=== PATIENT | female | born 1950 | race Caucasian/White ===

== ENCOUNTER 2018-11-17 13:43 | Inpatient (IN) | payer OTHER ==
[2018-11-17] MEDS ORDERED: ONDANSETRON 4 MG/2 ML VIAL ONE (14:59)
[2018-11-17 15:18] LABS: Absolute Lymphocytes (CBC) 2.2 K/uL (0.7-4.9); Absolute Monocytes 1.2 K/uL (0.1-1.3); Absolute Neutrophil 6.4 K/uL (1.8-8.0); Basophils % 0.6 % (0-1.3); Eosinophils % 1.9 % (0-4.4); Hematocrit 42.6 % (36.0-45.0); MPV 8.2 fL (7.6-11.3); Monocytes % 12.1 % (3.3-12.3); RBC Red Blood Cell Count 4.34 M/uL (3.86-4.86)
[2018-11-17 15:23] LABS: Urine Blood NEGATIVE (NEG); Urine Glucose NEGATIVE (NEG); Urine Protein NEGATIVE (NEG); Urine pH 5.5 (5.0-7.0)
[2018-11-17 15:48] LABS: Bilirubin Direct 0.2 mg/dL (0-0.2); Bilirubin Total 0.8 mg/dL (0.2-1.0); Potassium 3.7 mmol/L (3.5-5.1); Protein, Total 7.9 g/dL (6.4-8.2)
--- NOTE | 2018-11-17 17:13 | RAD REPORT ---
EXAM DESCRIPTION: CT - Abdomen Pelvis W Contrast - 11/17/2018 4:51 pm CLINICAL HISTORY: Lower abdominal pain, nausea, vaginal spotting COMPARISON: July 2012 TECHNIQUE: Biphasic, helical CT imaging of the abdomen and pelvis was performed following 100 ml non -ionic IV contrast. Oral contrast was given. All CT scans are performed using dose optimization technique as appropriate and may include automated exposure control or mA/KV adjustment according to patient size. FINDINGS: No suspicious findings in the lung bases. Liver shows diffuse fatty infiltration pattern. No focal liver lesion. Spleen and pancreas show no carrillo spicious findings. Cholecystectomy clips are present. No biliary tree dilatation. Moderate hydronephrosis of the pelvis and calices noted on the right. There is a 15 x 8 millimeter no nobstructing pelvic calcification. A 7 millimeter calcification is present in the proximal ureter. On a KUB projection this is the L3-4 disc level. Renal function is delayed on the right. No pyelonephri tis or acute parenchymal process. No bladder abnormalities. No adrenal abnormalities. Bilateral parap elvic cysts are present along with a 4 centimeter lower pole right renal cyst. No dilated bowel loops or bowel wall thickening. No free air, pneumatosis or free fluid. No other ar ea of stranding. Uterus and ovaries show no suspicious findings. A 2 centimeter right ovarian or para ovarian cyst is present. No hernia, mass or bulky lymphadenopathy. Disc and bony degenerative changes are present. Lower lumbar facet degenerative changes are advanced. L4-5 central spinal stenosis present. IMPRESSION: Obstructing 7 millimeter proximal right ureter calcification causing moderate pelvis and calyx dilatation on the right. Nonobstructing 15 x 8 mm calcification in the dilated right renal pelvis. Right renal function is del ayed. Diffuse fatty infiltration of the liver. Uterus and ovaries show no suspicious findings to explain vaginal spotting. A 2 centimeter right ovar ramon or paraovarian cyst is present.
[2018-11-17] MEDS ORDERED: KETOROLAC 30 MG/ML INJ ONE (17:39)
[2018-11-17] MEDS ORDERED: CEFTRIAXONE/SWI 1gm 1 GM/10 ML SYR ONE (17:39)
--- NOTE | 2018-11-17 17:40 | EDPHYS ---
Physician Documentation [facility] Name: Natasha Kim Age: 67 yrs Sex: Female : 1950 Arrival Date: 11/17/2018 Time: 13:48 Bed 15 Private MD: ED Physician Moses Carias HPI: 11/17 14:51 This 67 yrs old Female presents to ER via Ambulatory with complaints of rn Abdominal Pain. 14:51 The patient presents with abdominal pain right flank. The symptoms do not radiate. rn Associated signs and symptoms: Pertinent positives: nausea and vomiting, Pertinent negatives: diarrhea, dysuria, fever, hematuria, shortness of breath, vomiting blood. The symptoms are described as intermittent, sharp. Modifying factors: The symptoms are alleviated by nothing, the symptoms are aggravated by nothing. Severity of pain: At its worst the pain was moderate in the emergency department the pain has improved. The patient has not experienced similar symptoms in the past. Reports recently came off of cruise, reports 2 days of nausea/vomiting, now just having right flank pain and abd bloating, also reports vaginal spotting. No diarrhea. Had bowel movement with Ex-Lax. . Historical: - Allergies: 14:24 No Known Allergies; ca1 - Home Meds: 14:24 aspirin 81 mg Oral chew 1 tab once daily [Active]; lisinopril-hydrochlorothiazide oral ca1 oral [Active]; - PMHx: 14:24 Hypertension; Kidney stones; ca1 14:28 TIA; ca1 - PSHx: 14:24 Cholecystectomy; Neck Surgery; ca1 - Immunization history:: Flu vaccine is not up to date. - Social history:: Smoking status: Patient/guardian denies using tobacco. - Ebola Screening: : No symptoms or risks identified at this time. - Family history:: not pertinent. - Hospitalizations: : No recent hospitalization is reported. ROS: 14:51 Constitutional: Negative for fever, chills, and weight loss, Eyes: Negative for injury, rn pain, redness, and discharge, Neck: Negative for injury, pain, and swelling, Cardiovascular: Negative for chest pain, palpitations, and edema, Respiratory: Negative for shortness of breath, cough, wheezing, and pleuritic chest pain, Abdomen/GI: Negative for diarrhea, and constipation, : + vaginal bleeding MS/Extremity: Negative for injury and deformity, Skin: Negative for injury, rash, and discoloration, Neuro: Negative for headache, weakness, numbness, tingling, and seizure. Exam: 14:51 Constitutional: This is a well developed, well nourished patient who is awake, alert, rn and in no acute distress. Head/Face: Normocephalic, atraumatic. Eyes: Pupils equal round and reactive to light, extra-ocular motions intact. Lids and lashes normal. Conjunctiva and sclera are non-icteric and not injected. Cornea within normal limits. Periorbital areas with no swelling, redness, or edema. Abdomen/GI: soft, + mild distension, no abd tenderness Back: No spinal tenderness. No costovertebral tenderness. Full range of motion. Skin: Warm, dry with normal turgor. Normal color with no rashes, no lesions, and no evidence of cellulitis. MS/ Extremity: Pulses equal, no cyanosis. Neurovascular intact. Full, normal range of motion. Equal circumference. Neuro: Awake and alert, GCS 15, oriented to person, place, time, and situation. Cranial nerves II-XII grossly intact. Motor strength 5/5 in all extremities. Sensory grossly intact. Cerebellar exam normal. Normal gait. Vital Signs: 14:24 BP 126 / 73; Pulse 90; Resp 16; Temp 98.5(O); Pulse Ox 98% ; Weight 101.6 kg; Height 5 ca1 ft. 7 in. (170.18 cm); Pain 4/10; 15:30 BP 128 / 64; Pulse 80; Resp 17; Temp 98.0(O); Pulse Ox 100% on R/A; mh5 15:32 BP 128 / 64; Pulse 83; Resp 18; Pulse Ox 96% on R/A; aj 16:25 BP 109 / 53; Pulse 81; Resp 17; Pulse Ox 95% on R/A; mh5 17:33 BP 141 / 69; Pulse 87; Resp 19; Pulse Ox 95% on R/A; aj 19:15 BP 99 / 77; Pulse 84; Resp 16; Pulse Ox 95% on R/A; jb4 14:24 Body Mass Index 35.08 (101.60 kg, 170.18 cm) ca1 MDM: 14:30 Patient medically screened. rn 17:20 Differential diagnosis: diverticulitis, non-specific abd pain, Pyelonephritis, rn Ureterolithiasis. Data reviewed: vital signs, nurses notes, lab test result(s), radiologic studies, CT scan, and as a result, I will admit patient. Counseling: I had a detailed discussion with the patient and/or guardian regarding: the historical points, exam findings, and any diagnostic results supporting the discharge/admit diagnosis, lab results, radiology results, the need for further work-up and treatment in the hospital. Response to treatment: the patient's symptoms have mildly improved after treatment. Admission orders: after a detailed discussion of the patient's condition and case, the admit orders are written by me. Special discussion:. 17:38 ED course: Consulted vandana Zarco with admission, NPO after midnight, and plan for marketing research intern tomorrow, admitted to Dr. Fong. . 11/17 14:43 Order name: Basic Metabolic Panel; Complete Time: 15:50 rn 11/17 14:43 Order name: CBC with Diff; Complete Time: 15:50 rn 11/17 14:43 Order name: Hepatic Function; Complete Time: 15:50 rn 11/17 14:43 Order name: Lipase; Complete Time: 15:50 rn 11/17 14:43 Order name: CT Abd/Pelvis - W/Contrast; Complete Time: 17:15 rn 11/17 14:56 Order name: Urine Dipstick--Ancillary (enter results); Complete Time: 15:50 em1 11/17 14:43 Order name: IV Saline Lock; Complete Time: 15:07 rn 11/17 14:43 Order name: Labs collected and sent; Complete Time: 15:07 rn 11/17 14:56 Order name: Urine Dipstick-Ancillary (obtain specimen); Complete Time: 14:56 em1 Administered Medications: 15:07 Drug: Zofran 4 mg Route: IVP; Site: right antecubital; aj 19:46 Follow up: Response: No adverse reaction; Nausea is decreased jb4 17:32 Drug: Rocephin - (cefTRIAXone) 1 grams Route: IVPB; Infused Over: 30 mins; Site: right aj antecubital; 19:44 Follow up: Response: No adverse reaction jb4 17:32 Drug: TORadol 30 mg Route: IVP; Site: right antecubital; aj 19:44 Follow up: Response: No adverse reaction; Pain is decreased jb4 Disposition: 11/17/18 17:40 Hospitalization ordered by Gen Fong for Inpatient Admission. Preliminary diagnosis is Hydronephrosis with renal and ureteral calculous obstruction. - Bed requested for Telemetry/MedSurg (Inpatient). - Status is Inpatient Admission. jb4 - Condition is Stable. - Problem is an ongoing problem. - Symptoms have improved. UTI on Admission? No Signatures: Dispatcher [employer] EDCaroline Cunningham, RN RN Moses Mayers MD MD rn Martinez, Eric em1 You Giraldo RN RN jb4 Xiao Hall RN RN df Lorna Thompson RN RN ca1 Corrections: (The following items were deleted from the chart) 18:01 17:40 Hospitalization Ordered by Gen Fong DO for Inpatient Admission. Preliminary df diagnosis is Hydronephrosis with renal and ureteral calculous obstruction. Bed requested for Telemetry/MedSurg (Inpatient). Status is Inpatient Admission. Condition is Stable. Problem is an ongoing problem. Symptoms have improved. UTI on Admission? No. rn 20:00 18:01 11/17/2018 17:40 Hospitalization Ordered by Gen Fong DO for Inpatient jb4 Admission. Preliminary diagnosis is Hydronephrosis with renal and ureteral calculous obstruction. Bed requested for Telemetry/MedSurg (Inpatient). Status is Inpatient Admission. Condition is Stable. Problem is an ongoing problem. Symptoms have improved. UTI on Admission? No. df
--- NOTE | 2018-11-17 17:40 | ER ---
Nurse's Notes [facility] Name: Natasha Kim Age: 67 yrs Sex: Female : 1950 Arrival Date: 11/17/2018 Time: 13:48 Bed 15 Private MD: Diagnosis: Hydronephrosis with renal and ureteral calculous obstruction Presentation: 11/17 14:16 Presenting complaint: Patient states: , abdominal pain and N/V started. Over ca1 the weekend she has thrown up, and feels bloated. She has been taking Aleve and Beena Reynolds to relieve symptoms. Transition of care: patient was not received from another setting of care. Onset of symptoms was November 11, 2018. Risk Assessment: Do you want to hurt yourself or someone else? Patient reports no desire to harm self or others. Initial Sepsis Screen: Does the patient meet any 2 criteria? No. Patient's initial sepsis screen is negative. Does the patient have a suspected source of infection? No. Patient's initial sepsis screen is negative. Care prior to arrival: None. 14:16 Method Of Arrival: Ambulatory ca1 14:16 Acuity: KEN 3 ca1 Historical: - Allergies: 14:24 No Known Allergies; ca1 - Home Meds: 14:24 aspirin 81 mg Oral chew 1 tab once daily [Active]; lisinopril-hydrochlorothiazide oral ca1 oral [Active]; - PMHx: 14:24 Hypertension; Kidney stones; ca1 14:28 TIA; ca1 - PSHx: 14:24 Cholecystectomy; Neck Surgery; ca1 - Immunization history:: Flu vaccine is not up to date. - Social history:: Smoking status: Patient/guardian denies using tobacco. - Ebola Screening: : No symptoms or risks identified at this time. - Family history:: not pertinent. - Hospitalizations: : No recent hospitalization is reported. Screenin:07 Abuse screen: Denies threats or abuse. Denies injuries from another. Nutritional aj screening: No deficits noted. Tuberculosis screening: No symptoms or risk factors identified. Fall Risk None identified. Assessment: 15:07 General: Appears in no apparent distress. comfortable, Behavior is calm, cooperative, aj appropriate for age. Pain: Complains of pain in posterior aspect of right lateral abdomen, anterior aspect of right lateral abdomen, right lower quadrant and left lower quadrant. Neuro: Level of Consciousness is awake, alert, obeys commands, Oriented to person, place, time, situation, Appropriate for age. Respiratory: Airway is patent Respiratory effort is even, unlabored, Respiratory pattern is regular, symmetrical. GI: Abdomen is non-distended, obese, Bowel sounds present X 4 quads. Abd is soft and non tender X 4 quads. GI: Reports nausea. Derm: Skin is intact, is healthy with good turgor, Skin is pink, warm \T\ dry. normal. 19:00 Reassessment: Patient appears in no apparent distress at this time. Patient and/or jb4 family updated on plan of care and expected duration. Pain level reassessed. Patient is alert, oriented x 3, equal unlabored respirations, skin warm/dry/pink. 19:00 Cardiovascular: Patient's skin is warm and dry. jb4 Vital Signs: 14:24 BP 126 / 73; Pulse 90; Resp 16; Temp 98.5(O); Pulse Ox 98% ; Weight 101.6 kg; Height 5 ca1 ft. 7 in. (170.18 cm); Pain 4/10; 15:30 BP 128 / 64; Pulse 80; Resp 17; Temp 98.0(O); Pulse Ox 100% on R/A; mh5 15:32 BP 128 / 64; Pulse 83; Resp 18; Pulse Ox 96% on R/A; aj 16:25 BP 109 / 53; Pulse 81; Resp 17; Pulse Ox 95% on R/A; mh5 17:33 BP 141 / 69; Pulse 87; Resp 19; Pulse Ox 95% on R/A; aj 19:15 BP 99 / 77; Pulse 84; Resp 16; Pulse Ox 95% on R/A; jb4 14:24 Body Mass Index 35.08 (101.60 kg, 170.18 cm) ca1 ED Course: 13:48 Patient arrived in ED. mr 14:21 Triage completed. ca1 14:24 Arm band placed on right wrist. ca1 14:30 Moses Carias MD is Attending Physician. rn 14:36 Caroline Andrade, RACHEL is Primary Nurse. aj 15:06 Initial lab(s) drawn, by mt, sent to lab. Urine collected: clean catch specimen, clear. 5 Inserted saline lock: 20 gauge in right antecubital area, using aseptic technique. Blood collected. 15:07 Patient has correct armband on for positive identification. Placed in gown. Bed in low 5 position. Call light in reach. Side rails up X 1. Warm blanket given. Pulse ox on. NIBP on. 15:07 Urine Dipstick--Ancillary (enter results) Sent. [facility] 15:07 No provider procedures requiring assistance completed. aj 15:08 Basic Metabolic Panel Sent. [facility] 15:08 CBC with Diff Sent. [facility] 15:08 Hepatic Function Sent. [facility] 15:08 Lipase Sent. [facility] 16:[address] ia 16:52 CT Abd/Pelvis - W/Contrast In Process Unspecified. EDMS 17:39 Gen Fong DO is Hospitalizing Provider. rn 19:15 Patient admitted, IV remains in place. jb4 Administered Medications: 15:07 Drug: Zofran 4 mg Route: IVP; Site: right antecubital; aj 19:46 Follow up: Response: No adverse reaction; Nausea is decreased jb4 17:32 Drug: Rocephin - (cefTRIAXone) 1 grams Route: IVPB; Infused Over: 30 mins; Site: right aj antecubital; 19:44 Follow up: Response: No adverse reaction jb4 17:32 Drug: TORadol 30 mg Route: IVP; Site: right antecubital; aj 19:44 Follow up: Response: No adverse reaction; Pain is decreased jb4 Outcome: 17:40 Decision to Hospitalize by Provider. rn 19:37 Admitted to Tele accompanied by tech, via wheelchair, room 413, with chart, Report jb4 called to RACHEL Lopez 19:37 Condition: stable 19:37 Discharge instructions given to patient, Instructed on the need for admit, Demonstrated understanding of instructions. 20:00 Patient left the ED. jb4 Signatures: Dispatcher [employer] Caroline Meyer RN RN aj Rivera, Mary mr Nieto, Roman, MD MD rn Bryson, James, RN RN jb4 Orlin Trinidad [facility] Lorna Thompson RN RN ca1
--- NOTE | 2018-11-17 17:50 | P.HP ---
Certification for Inpatient Patient admitted to: Observation With expected LOS: <2 Midnights Patient will require the following post-hospital care: None Practitioner: I am a practitioner with admitting privileges, knowledge of patient current condition, hospital course, and medical plan of care. Services: Services provided to patient in accordance with Admission requirements found in Title 42 Section 412.3 of the Code of Federal Regulations Patient History Date of Service: 11/17/18 Primary Care Provider: In Transition, To establish care with Dr. Jenkins Reason for admission: Right flank pain History of Present Illness: 67-year-old female presented to the emergency room with right flank pain. Patient reports right flank pain since Thursday. Patient reports pain about 4/ 10. Pain comes and goes. She reports no chills or fever. Some nausea and vomiting noted. Over the last day it has gotten worse. Patient with history of nephrolithiasis in the past. She has seen Neurology in [place]. She is in transition right now to see a PCP locally. Patient also mentioned some vaginal bleeding from time to time. She is postmenopausal. In the ER patient evaluated. Vital signs stable. Hemoglobin 14.5, white count 10.1, urinalysis unremarkable. BUN of 21, creatinine 1.38 with a GFR of 38. CT scan revealed obstructing 7 mm proximal right ureter calcification causing moderate pelvis and calyx dilation on the right side. Nonobstructing 15 x 8 mm calcification in the dilated right renal pelvis was also identified. Right renal function is delayed. Diffuse fatty liver noted. Uterus unremarkable. 2 cm right ovarian/alpa ovarian cyst noted. Patient was stabilize in the emergency room. ER spoke with urology. Urology recommends admission. Urology asked that I admit the patient to address her medical condition. Urology consulted. When I saw the patient ER, she appeared stable. Pain under control. Patient reports history of hypertension and nephrolithiasis. Home medications list reviewed: Yes - Past Medical/Surgical History Diabetic: No -: Hypertension -: Nephrolithiasis -: Cholecystectomy -: Neck surgery Psychosocial/ Personal History: The patient is . She has no children. She does not work. - Family History Brother -: Cancer (Colon cancer) - Social History Smoking Status: Never smoker Alcohol use: Yes CD- Drugs: No Caffeine use: No Place of Residence: Home Review of Systems General: As per HPI Eyes: Unremarkable ENT: Unremarkable Respiratory: Unremarkable Cardiovascular: Unremarkable Gastrointestinal: Nausea, Vomiting, Abdominal Pain, As per HPI Genitourinary: As per HPI Musculoskeletal: Unremarkable Integumentary: Unremarkable Neurological: Unremarkable Lymphatics: Unremarkable Other: Patient reports vaginal spotting from time to time. Patient also reports that her last colonoscopy showed polyps. Physical Examination - Physical Exam General: Alert, In no apparent distress, Oriented x3, Cooperative HEENT: Atraumatic, Normocephalic, PERRLA, Mucous membr. moist/pink Neck: Supple, No Thyromegaly Respiratory: Clear to auscultation bilaterally, Normal air movement Cardiovascular: Normal pulses, Regular rate/rhythm Gastrointestinal: Normal bowel sounds, Soft and benign, Non-distended, No masses , No rebound, No guarding, Tenderness (Right flank pain noted) Musculoskeletal: No contractures, No erythema, No tenderness, No warmth Integumentary: No tenderness/swelling, No erythema, No warmth, No cyanosis Neurological: Normal speech, Normal strength at 5/5 x4 extr, Normal tone, Normal affect Lymphatics: No axilla or inguinal lymphadenopathy - Studies Laboratory Data (last 24 hrs) 11/17/18 15:00: WBC 10.1, Hgb 14.5, Hct 42.6, Plt Count 216 11/17/18 15:00: Sodium 139, Potassium 3.7, BUN 21 H, Creatinine 1.38 H, Glucose 87, Total Bilirubin 0.8, AST 22, ALT 34, Alkaline Phosphatase 94, Lipase 189 Assessment and Plan - Plan Impression: Right flank pain secondary to obstructing 7 mm proximal right ureter calcification with moderate pelvis and calyx dilation complicated with non obstructing 15 x 8 mm calcification to the dilated right renal pelvis Acute renal insufficiency Hypertension Hyperlipidemia Postmenopausal vaginal bleeding with 2 mm right ovarian cyst Plan: Right flank pain secondary to obstructing 7 mm proximal right ureter calcification with moderate pelvis and calyx dilation complicated with non obstructing 15 x 8 mm calcification to the dilated right renal pelvis: Patient will be admitted. Patient started on IV Rocephin. Will obtain blood cultures. Urology has been consulted and is aware of the patient. Patient will remain NPO after midnight. Urological intervention planned for tomorrow. Will continue IV fluids. Will continue with IV medication for pain. Await further recommendations from urology. Acute renal insufficiency: Continue IV fluids. Will monitor closely. Hypertension: Will provide IV medication as needed Fatty liver: Will address lifestyle modification education. Postmenopausal vaginal bleeding with 2 mm right ovarian cyst: Patient will need to follow up with gynecology as an outpatient to further address. Patient should have endometrial biopsy and pelvic ultrasound as an outpatient. Discharge Plan: Home Plan to discharge in: 24 Hours - Advance Directives Does patient have a Living Will: No Does patient have a Durable POA for Healthcare: No - Code Status/Comfort Care Code Status Assessed: Yes (Patient full code.) Time Spent Managing Pts Care (In Minutes): 55
[2018-11-17] MEDS ORDERED: ACETAMINOPHEN 500 MG TAB PO PRN (20:12)
[2018-11-17] MEDS ORDERED: HYDROCODONE/APAP 7.5/325 MG TAB PO PRN (20:12)
[2018-11-17] MEDS ORDERED: HYDRALAZINE HCL 20 MG/ML VIAL IV PRN (20:12)
[2018-11-17] MEDS ORDERED: ONDANSETRON 4 MG/2 ML VIAL IV PRN (20:12)
[2018-11-17] MEDS ORDERED: MORPHINE 2 MG/ML SYR IV PRN (20:12)
[2018-11-17] MEDS ORDERED: TRAMADOL HCL 50 MG TAB PO PRN (20:12)
[2018-11-17] MEDS: NA CHLORIDE 0.9% 1,000 ML IV SCH (20:25)
[2018-11-17] MEDS: FAMOTIDINE 20 MG TAB PO SCH (21:33)
[2018-11-18 00:39] LABS: Urine Appearance CLEAR; Urine Bilirubin NEGATIVE (NEG); Urine Blood 2+ (NEG); Urine Color YELLOW; Urine Glucose NEGATIVE (NEG); Urine Protein NEGATIVE (NEG); Urine Specific Gravity >=1.030 (1.005-1.030); Urine Urobilinogen 0.2 mg/dL (0.2-1.0)
[2018-11-18 00:40] LABS: Urine Microscopic Reflex ORDER UMIC
[2018-11-18 00:48] LABS: Urine Bacteria <20 /HPF (<20)
[2018-11-18 00:49] LABS: Urine Amorphous Sediment 1+ /HPF (NONE SEEN); Urine Culture Reflex Order REFLEXED
[2018-11-18] MEDS: NA CHLORIDE 0.9% 1,000 ML IV SCH (05:52)
[2018-11-18] MEDS ORDERED: MORPHINE 4 MG/ML SYR IV PRN (07:35)
[2018-11-18 07:45] LABS: Absolute Lymphocytes (CBC) 1.9 K/uL (0.7-4.9); Absolute Monocytes 0.9 K/uL (0.1-1.3); Absolute Neutrophil 4.1 K/uL (1.8-8.0); Basophils % 0.6 % (0-1.3); Eosinophils % 3.3 % (0-4.4); Hematocrit 40.2 % (36.0-45.0); Lymphocytes % 26.3 % (15.3-44.8); MPV 8.2 fL (7.6-11.3); Monocytes % 12.7 % (3.3-12.3); RBC Red Blood Cell Count 4.08 M/uL (3.86-4.86)
[2018-11-18 07:59] LABS: Magnesium 2.1 mg/dL (1.8-2.4); Potassium 3.9 mmol/L (3.5-5.1)
[2018-11-18] MEDS ORDERED: PNEUMOCOCCAL VACCINE 0.5 ML IMVAC ONE (08:00)
[2018-11-18] MEDS ORDERED: INFLUENZA VACCINE (for 3y+) 0.5 ML DOSE IMVAC ONE (08:00)
[2018-11-18] MEDS ORDERED: POTASSIUM CL SA 10 MEQ TAB PO ONE (08:08)
[2018-11-18] MEDS: FAMOTIDINE 20 MG TAB PO SCH (08:41)
[2018-11-18] MEDS ORDERED: CEFTRIAXONE/SWI 1gm 1 GM/10 ML SYR IV SCH (09:00)
[2018-11-18] MEDS ORDERED: CEFTRIAXONE 1 GM/NS 50 ML 1 GM/50 ML BAG IV SCH (09:00)
[2018-11-18] MEDS ORDERED: Ringers Lactate 1,000 ML IV ONE (13:17)
[2018-11-18] MEDS ORDERED: FENTANYL CITR 100 MCG/2 ML ONE ×2 (13:27→13:51)
[2018-11-18] MEDS ORDERED: MIDAZOLAM HCL 2 MG/2 ML INJ ONE (13:27)
[2018-11-18] MEDS ORDERED: PROPOFOL 200 MG/20 ML VIAL IV ONE (13:27)
[2018-11-18] MEDS ORDERED: LIDOCAINE 2% MPF 5 ML VIAL ONE (13:28)
--- NOTE | 2018-11-18 13:50 | CON ---
History Of Present Illness: A 67-year-old female having right flank pain for about 5 days now. Pain was a 4/10. Pain is intermittent. She denies fevers and chills. She did have some nausea and vomiting. Her pain has gotten worse so she came to the emergency room, where a CT scan was performed showing moderate hydronephrosis of the pelvis and calices on the right. There is a 15 x 8 mm nonobstructing pelvic calcification and also an additional 7 mm calcification present in the proximal ureter at the level of L3-L4. She also has a 2 cm right ovarian or parovarian cyst present and L4-L5 central spinal stenosis present. She will need butadiene converter helper eval for cyst. She was seen in the emergency room, evaluated, and decided to go ahead and admit the patient home. Her hemoglobin was stable at 14.5, white count was 10.1. Urinalysis was unremarkable. Creatinine was 1.4 with a GFR of 38. Past Medical History: Hypertension, kidney stones, cholecystectomy, neck surgery. Social History: She is , has no children. Does not work. Family History: She has a brother with colon cancer. Social History: She never smoked. Does use some alcohol. No drugs. No caffeine use. Resides at home. Review of Systems: Ten-point review of systems otherwise unremarkable. The patient does report some vaginal spotting from time to time. Colonoscopy did show some polyps. Physical Examination: General: She is alert, in no acute distress. Oriented x3. Cooperative. HEENT: Atraumatic, normocephalic. Mucous membranes moist, pink. Neck: Supple. No thyromegaly. Respiratory: Clear to auscultation bilaterally. Cardiovascular: Normal pulse. Regular rate and rhythm. Gastrointestinal: Normal bowel sounds. Soft, benign abdomen. Has some right flank tenderness. Skin: Nontender. No warmth. No redness. Neurologic: Alert and oriented x3. Cranial nerves were grossly intact. Lymphatics: No lymphadenopathy. Laboratory Data: Reviewed. White count is 10.1, H and H are 14 and 42, platelet count 216. Chemistry shows sodium 139, potassium 3.7, BUN 21, creatinine 1.4, glucose 84, total bilirubin 0.8, AST 22, ALT 34, alkaline phosphatase 94, lipase 189. Radiological Studies: As mentioned above. Assessment And Plan: A pleasant 67-year-old with 2 large stones, one in the renal pelvis measuring 15 x 8 and one in the right proximal ureter measuring 7 mm. Plan: Plan is to do a cystoscopy and double-J stent. The patient may need an ESWL at a later date. All the general information, alternatives, and risks were reviewed. The patient was competent. The patient was not coerced and signed her informed consent. LEVY/HANNAH Voice ID: [id number] Report ID: [id number] MTDD
[2018-11-18] MEDS ORDERED: ONDANSETRON 4 MG/2 ML VIAL ONE (13:52)
--- NOTE | 2018-11-18 14:26 | RAD REPORT ---
EXAM DESCRIPTION: RAD - Urethrocystogrphy Retrograde - 11/18/2018 2:17 pm FINDINGS: Fluoroscopic assisted placement of a right ureteral stent performed. There were approximat marla 18 images acquired over the cine loop acquisition. Fluoro time was 1.21 minutes. No suspicious or unexpected finding.
--- NOTE | 2018-11-18 14:59 | P.DS ---
Admission Date: 11/18/18 Discharge Date: 11/18/18 Primary Care Provider: In Transition, To establish care with Dr. Jenkins Disposition: ROUTINE DISCHARGE Discharge Condition: GOOD Reason for Admission: Right flank pain Consultations: Urology-Dr. Ruiz Procedures: CT scan: COMPARISON: July 2012 TECHNIQUE: Biphasic, helical CT imaging of the abdomen and pelvis was performed following 100 ml non-ionic IV contrast. Oral contrast was given. All CT scans are performed using dose optimization technique as appropriate and may include automated exposure control or mA/KV adjustment according to patient size. FINDINGS: No suspicious findings in the lung bases. Liver shows diffuse fatty infiltration pattern. No focal liver lesion. Spleen and pancreas show no suspicious findings. Cholecystectomy clips are present. No biliary tree dilatation. Moderate hydronephrosis of the pelvis and calices noted on the right. There is a 15 x 8 millimeter nonobstructing pelvic calcification. A 7 millimeter calcification is present in the proximal ureter. On a KUB projection this is the L3-4 disc level. Renal function is delayed on the right. No pyelonephritis or acute parenchymal process. No bladder abnormalities. No adrenal abnormalities. Bilateral parapelvic cysts are present along with a 4 centimeter lower pole right renal cyst. No dilated bowel loops or bowel wall thickening. No free air, pneumatosis or free fluid. No other area of stranding. Uterus and ovaries show no suspicious findings. A 2 centimeter right ovarian or paraovarian cyst is present. No hernia, mass or bulky lymphadenopathy. Disc and bony degenerative changes are present. Lower lumbar facet degenerative changes are advanced. L4-5 central spinal stenosis present. IMPRESSION: Obstructing 7 millimeter proximal right ureter calcification causing moderate pelvis and calyx dilatation on the right. Nonobstructing 15 x 8 mm calcification in the dilated right renal pelvis. Right renal function is delayed. Diffuse fatty infiltration of the liver. Uterus and ovaries show no suspicious findings to explain vaginal spotting. A 2 centimeter right ovarian or paraovarian cyst is present. Medical Problem List: Right flank pain secondary to obstructing 7 mm proximal right ureter calcification with moderate pelvis and calyx dilation complicated with non obstructing 15 x 8 mm calcification to the dilated right renal pelvis Acute renal insufficiency Hypertension Hyperlipidemia Postmenopausal vaginal bleeding with 2 mm right ovarian cyst Brief History of Present Illness: 67-year-old female presented to the emergency room with right flank pain. Patient reports right flank pain since Thursday. Patient reports pain about 4/ 10. Pain comes and goes. She reports no chills or fever. Some nausea and vomiting noted. Over the last day it has gotten worse. Patient with history of nephrolithiasis in the past. She has seen Neurology in [place]. She is in transition right now to see a PCP locally. Patient also mentioned some vaginal bleeding from time to time. She is postmenopausal. In the ER patient evaluated. Vital signs stable. Hemoglobin 14.5, white count 10.1, urinalysis unremarkable. BUN of 21, creatinine 1.38 with a GFR of 38. CT scan revealed obstructing 7 mm proximal right ureter calcification causing moderate pelvis and calyx dilation on the right side. Nonobstructing 15 x 8 mm calcification in the dilated right renal pelvis was also identified. Right renal function is delayed. Diffuse fatty liver noted. Uterus unremarkable. 2 cm right ovarian/alpa ovarian cyst noted. Patient was stabilize in the emergency room. ER spoke with urology. Urology recommends admission. Urology asked that I admit the patient to address her medical condition. Urology consulted. When I saw the patient ER, she appeared stable. Pain under control. Patient reports history of hypertension and nephrolithiasis. Hospital Course: Patient presented with right flank pain. Patient found to have obstructing 7 mm proximal right ureter calcification with moderate pelvis and calyx dilation. This is also complicated with nonobstructing 15 x 8 mm calcification to the dilated right renal pelvis. The patient was treated in the hospital. Urology was consulted. Urology performed cystoscopy, ureteroscopy with stent placed to the right ureter. Patient tolerated procedure well. Patient will be discharged. At discharge she will continue with oxybutynin 10 mg daily, tramadol 50 mg 3 times a day as needed for pain, and Keflex once daily for 21 days. Patient will follow up with urology within 1 week. Patient will have lithotripsy done likely next week. Recommend to recheck lab-BMP in 1 week to monitor her progress. Patient with acute renal insufficiency secondary to obstructing ureter. Stent now in place. Recommend to recheck lab-BMP in 1 week. Patient has hypertension. Patient may continue with her medication-lisinopril hydrochlorothiazide. Recommend to maintain blood pressures less 150/80. Further adjustment can be done by her PCP. Patient found to have fatty liver. Education will be provided. Patient reported postmenopausal vaginal spotting. 2 mm right ovarian cyst noted on CT scan. Recommend for patient to follow up with gynecology. Patient will likely require endometrial biopsy and pelvic ultrasound to further evaluate. Vital Signs/Physical Exam: Temp Pulse Resp BP Pulse Ox 97.5 F 89 18 135/64 98 11/18/18 14:33 11/18/18 14:33 11/18/18 14:33 11/18/18 14:33 11/18/18 12:00 General: Alert, In no apparent distress, Oriented x3, Cooperative HEENT: Atraumatic Neck: Supple Respiratory: Clear to auscultation bilaterally, Normal air movement Cardiovascular: Normal pulses, Regular rate/rhythm Gastrointestinal: Normal bowel sounds, Soft and benign, Non-distended, No tenderness, No masses, No rebound, No guarding Musculoskeletal: No erythema, No tenderness, No warmth Integumentary: No tenderness/swelling, No erythema, No warmth, No cyanosis Neurological: Normal speech, Normal strength at 5/5 x4 extr, Normal tone, Normal affect Laboratory Data at Discharge: WBC 7.2 K/uL (4.3-10.9) D 11/18/18 07:25 Hgb 13.7 g/dL (12.0-15.0) 11/18/18 07:25 Hct 40.2 % (36.0-45.0) 11/18/18 07:25 Plt Count 195 K/uL (152-406) 11/18/18 07:25 Sodium 140 mmol/L (136-145) 11/18/18 07:25 Potassium 3.9 mmol/L (3.5-5.1) 11/18/18 07:25 BUN 20 mg/dL (7-18) H 11/18/18 07:25 Creatinine 1.38 mg/dL (0.55-1.3) H 11/18/18 07:25 Glucose 96 mg/dL (74-106) 11/18/18 07:25 Magnesium 2.1 mg/dL (1.8-2.4) 11/18/18 07:25 Total Bilirubin 0.8 mg/dL (0.2-1.0) 11/17/18 15:00 AST 22 U/L (15-37) 11/17/18 15:00 ALT 34 U/L (12-78) 11/17/18 15:00 Alkaline Phosphatase 94 U/L (45-117) 11/17/18 15:00 Lipase 189 U/L (73-393) 11/17/18 15:00 Home Medications: Lisinopril/Hydrochlorothiazide [Lisinopril-Hctz 20-12.5 mg Tab] 1 tab PO DAILY 11/18/18 Patient Discharge Instructions: 1. Patient will follow up with her PCP in 1 week to follow up this hospitalization. 2. Patient presented with right flank pain. Patient found to have obstructing 7 mm proximal right ureter calcification with moderate pelvis and calyx dilation. This is also complicated with nonobstructing 15 x 8 mm calcification to the dilated right renal pelvis. The patient was treated in the hospital. Urology was consulted. Urology performed cystoscopy, ureteroscopy with stent placed to the right ureter. Patient tolerated procedure well. Patient will be discharged. At discharge she will continue with oxybutynin 10 mg daily, tramadol 50 mg 3 times a day as needed for pain, and Keflex once daily for 21 days. Patient will follow up with urology within 1 week. Patient will have lithotripsy done likely next week. Recommend to recheck lab-BMP in 1 week to monitor her progress. 3. Patient with acute renal insufficiency secondary to obstructing ureter. Stent now in place. Recommend to recheck lab-BMP in 1 week. 4. Patient has hypertension. Patient may continue with her medication-lisinopril hydrochlorothiazide. Recommend to maintain blood pressures less 150/80. Further adjustment can be done by her PCP. 5. Patient found to have fatty liver. Education will be provided. 6. Patient reported postmenopausal vaginal spotting. 2 mm right ovarian cyst noted on CT scan. Recommend for patient to follow up with gynecology. Patient will likely require endometrial biopsy and pelvic ultrasound to further evaluate. Diet: AHA Activity: Ad lauri Time spent managing pt's care (in minutes): 55
== END 2018-11-18 17:55 | disposition home or self-care (01) | DRG 661 ==
LOC: ER 13:43 → ERHOLD 17:40 → 4TH 19:38 → OBSVTOIN 11-18 11:03
PROVIDERS: ADMIT Family Medicine; ATTEND Family Medicine
PROC: 0T768DZ Dilation of Right Ureter with Intraluminal Device, Via Natural or Artificial Opening Endoscopic (ICD-10-PCS; principal; 2018-11-18 13:30)
DX: N20.1 Calculus of ureter (principal); N28.9 Disorder of kidney and ureter, unspecified; N83.201 Unspecified ovarian cyst, right side; N95.0 Postmenopausal bleeding; I10 Essential (primary) hypertension; K76.0 Fatty (change of) liver, not elsewhere classified
CPT/HCPCS: 36415; 51610; 74177; 74450; 80048; 80076; 81003; 81015; 82962; 83690; 83735; 85025; 87040; 87086; 87088; 96374; 96375; 99285; G0378; J0696; J2250; J2405; J2704; J3010; J7030; Q9967

== ENCOUNTER 2018-12-21 08:55 | Day surgery (SDC) | payer OTHER ==
[2018-12-21] MEDS ORDERED: Ringers Lactate 1,000 ML IV ONE ×2 (09:10→14:38)
--- NOTE | 2018-12-21 09:55 | RAD REPORT ---
EXAM DESCRIPTION: RAD - Abdomen 1 View (KUB) - 12/21/2018 8:52 am CLINICAL HISTORY: Abdomen pain. FINDINGS: The bowel gas pattern is unremarkable. A right ureteral stent in place. Multiple right renal calculi again demonstrated. A 6 millimeter calculus has migrated medially into t he right renal pelvis. Calcification along the course of the right ureter is not seen.
[2018-12-21] MEDS: GENTAMICIN 80 MG/100 ML BAG 80 MG/100 ML BAG IV ONE ×3 (12:50→13:20)
[2018-12-21] MEDS ORDERED: MIDAZOLAM HCL 2 MG/2 ML INJ ONE (13:06)
[2018-12-21] MEDS ORDERED: LIDOCAINE 2% MPF 5 ML VIAL ONE (13:06)
[2018-12-21] MEDS ORDERED: FENTANYL CITR 100 MCG/2 ML ONE (13:06)
[2018-12-21] MEDS ORDERED: PROPOFOL 200 MG/20 ML VIAL IV ONE (13:06)
[2018-12-21] MEDS ORDERED: ONDANSETRON 4 MG/2 ML VIAL ONE (13:07)
[2018-12-21] MEDS ORDERED: TRAMADOL HCL 50 MG TAB ONE (16:46)
[2018-12-21] MEDS ORDERED: OXYBUTYNIN CHLORIDE 5 MG TAB ONE (16:46)
--- NOTE | 2018-12-21 16:48 | RAD REPORT ---
EXAM DESCRIPTION: RAD - Urethrocystogrphy Retrograde - 12/21/2018 4:34 pm FINDINGS: Approximately 60 fluoroscopic images were obtained during fluoroscopic assisted placement of a right ureteral stent. Fluoro time was 4 minutes and 14 seconds. Images show stepwise placement of the stent. No suspicious or unexpected finding.
== END 2018-12-21 16:51 | disposition home or self-care (01) ==
LOC: OR 08:55
PROVIDERS: ATTEND Urology
PROC: 0T768DZ Dilation of Right Ureter with Intraluminal Device, Via Natural or Artificial Opening Endoscopic (ICD-10-PCS; 2018-12-21)
PROC: 0TF68ZZ Fragmentation in Right Ureter, Via Natural or Artificial Opening Endoscopic (ICD-10-PCS; principal; 2018-12-21 12:30)
DX: N20.2 Calculus of kidney with calculus of ureter (principal); Q62.39 Other obstructive defects of renal pelvis and ureter; I10 Essential (primary) hypertension; Z86.73 Personal history of transient ischemic attack (TIA), and cerebral infarction without residual deficits; Z90.49 Acquired absence of other specified parts of digestive tract; Z80.42 Family history of malignant neoplasm of prostate; Z80.0 Family history of malignant neoplasm of digestive organs
CPT/HCPCS: 74018; 74450; 51610; 52356; J2704; J2250; J3010; J1580; J2405; Q9967

== ENCOUNTER 2019-02-08 08:09 | Day surgery (SDC) | payer OTHER ==
[2019-02-08] MEDS ORDERED: Ringers Lactate 1,000 ML IV ONE (08:24)
[2019-02-08] MEDS ORDERED: LIDOCAINE 1% W/EPI 1:100,000 MDV 50 ML VIAL ONE (09:38)
[2019-02-08] MEDS ORDERED: NA CHLORIDE 0.9% 1,000 ML ONE (09:39)
[2019-02-08] MEDS ORDERED: MIDAZOLAM HCL 2 MG/2 ML INJ ONE (09:45)
[2019-02-08] MEDS ORDERED: PROPOFOL 200 MG/20 ML VIAL IV ONE (09:52)
[2019-02-08] MEDS ORDERED: FENTANYL CITR 100 MCG/2 ML ONE (09:54)
[2019-02-08] MEDS ORDERED: LIDOCAINE 2% MPF 5 ML VIAL ONE (09:54)
[2019-02-08] MEDS ORDERED: ONDANSETRON 4 MG/2 ML VIAL ONE (10:08)
[2019-02-08] MEDS ORDERED: KETOROLAC 30 MG/ML INJ ONE (10:19)
--- NOTE | 2019-02-08 21:23 | OP ---
Date of Procedure: 02/08/2019 Surgeon: Alanna Bradshaw MD Preoperative Diagnosis: Postmenopausal bleeding. Postoperative Diagnoses: Postmenopausal bleeding and endometrial polyps. Procedures Performed: Hysteroscopy, polypectomy, and dilation and curettage. Anesthesia: General with LMA. Specimens: Endometrial curettings, which are scant and polyps. Complications: None. Drains: None. Condition: Stable. Indications For Procedure: The patient is a 68-year-old with postmenopausal bleeding. An ultrasound showed thickened endometrium with possible polyps. She was consented for hysteroscopy, D and C, and brought over to the hospital. After re-confirming her diagnosis and re-consenting, she was taken ba ck to the OR, placed in the supine fashion on the operating room table. She was extremely anxious an d therefore we chose to give her general anesthetic. After general anesthesia was given, she was anneliese cornelius in a dorsal lithotomy position using Akira stirrups. Pelvic exam was performed. Uterus small. No adnexal masses palpable. Vagina unremarkable. Speculum placed to expose the cervix. Anterior li p was grasped with an Allis clamp. After dilating the external os, prep x3 with Betadine was done. SlimLine diagnostic hysteroscope was placed through the cervical canal into the uterine cavity under direct visualization. The rest of the endometrium appeared to be completely unremarkable excepting t he right lateral wall. Polyps were seen from the roof of the endometrial canal at the fundus, and th e polyps appeared to be slightly more vascular and had frond-like projection. The tip of the scope was used to take down the base of the polyps, and the polyps were retrieved thro ugh the cervical canal using the Chester forceps, and they were handed off for permanent pathology. The scope was replaced. The entire polypoid complex was removed and curettings were performed direct ing to the right lateral wall where I saw the polypoid endometrium. However, rest of the endometrium was scraped as well and the endometrial curettings were very scant. These were all handed out for p ermanent pathology. All the instruments were removed. Instrument, needle, and sponge counts were do ne and were correct at the end of the case. The patient was recovered from anesthesia in the OR and taken to PACU in stable condition. She has a followup appointment with me in 1 week for discussion o f pathology results. SHAJI/HANNAH Voice ID: [id number] Report ID: [id number]
== END 2019-02-08 11:59 | disposition home or self-care (01) ==
LOC: OR 08:09
PROVIDERS: ATTEND Obstetrics & Gynecology
PROC: 0UDB7ZX Extraction of Endometrium, Via Natural or Artificial Opening, Diagnostic (ICD-10-PCS; 2019-02-08)
PROC: 0UB98ZX Excision of Uterus, Via Natural or Artificial Opening Endoscopic, Diagnostic (ICD-10-PCS; principal; 2019-02-08 09:30)
DX: N84.0 Polyp of corpus uteri (principal); N95.0 Postmenopausal bleeding; I10 Essential (primary) hypertension; Z79.899 Other long term (current) drug therapy
CPT/HCPCS: 58558; 88305; J2704; J2250; J3010; J7030; J2405

== ENCOUNTER 2022-09-23 19:54 | Emergency (ER) | payer OTHER ==
--- OUTSIDE RECORDS SUMMARY | 2022-09-23 19:59 | XMS REPORT | Continuity of Care Document ---
:1950 Author Organization [facility] t Address [address] [place] [address] Dr. Gutierrez. [address] [place] [address] Care Team Providers Name Role Phone Aron Love Primary Care Physician ANASTACIO GRIMALDO Attending Clinician Unavailable Anastacio Grimaldo MD Attending Clinician Doctor Unassigned, [place] Attending Clinician Unavailable Only, Adc Test Attending Clinician Unavailable Pob, Ad[facility] Lab Main Attending Clinician Unavailable G_Miriam Attending Clinician Unavailable ANASTACIO GRIMALDO Admitting Clinician Unavailable Anastacio Grimaldo MD Admitting Clinician Elio Admitting Clinician Unavailable Payers Payer Name Policy Type Policy Number Effective Date Expiration Date S judy [facility] MEDICARE [id number] 2020 COMPLETE CHOICE 00:00:00 [place]ICARE [place]: [id number] 2016 [employer] 00:00:00 Problems Condition Condition Condition Status Onset Resolution Last Treating Co mments Source Name Details Category Date Date Treatment Clinician Date Essential Essential Disease Active Uni vers hypertensi hypertensi 06-26 it y of [place] 00:00[place] [id number] Medical Branch Allergies, Adverse Reactions, Alerts Allergy Allergy Status Severity Reaction(s) Onset Inactive Treating Comm ents Source Name Type Date Date Clinician NO KNOWN Drug Active Univers ALLERGIE Class [facility] [place] [facility] Social History Social Habit Start Date Stop Date Quantity Comments Source History SDOH University o f Alcohol Comment [place] [facility] Exposure to Not sure University of SARS-CoV-2 [place] [facility] (event) Branch History SDOH University o f Alcohol Std [place] [facility] Drinks Branch History SDNM University o f Alcohol Binge [place] [facility] Alcohol intake 2021-08-21 2021-08-21 Lifetime University of 00:00:00 00:00:00 non-drinker [place] [facility] (finding) Branch History SDOH 2021-06-26 2021-06-26 1 University o f Alcohol Frequency 00:00:00 00:00:00 [place] [facility] Tobacco use and 2021-06-24 2021-06-24 Never used Universit y of exposure 00:00:00 00:00:00 [facility] Sex Ass[birth year] Universit y of 00:00:00 00:00:00 [facility] Smoking Status Start Date Stop Date Source Unknown if ever smoked [facility] y [facility] Never smoker [facility] Branch Medications Ordered Filled Start Stop Current Ordering Indication Dosage Frequency Signature Comments Components Source Medication Medication Date Date Medication? Clinician (SIG) Name Name mydriatic 2020-10- No .5mL 0.5 mL, Univ ers #5 008-21 Left Eye, ity of ophthalmic 16:15: 16:38 ONCE, 1 [place] solution 00 :00 dose, On Medical 0.5 mL Wed Branch syringe 08/21/21 at 1115, Routine, DSU Pre-op lactated 2020-10- No 1000mL at 42 Unive rs ringers IV 0-27 10-27 mL/hr, ity of infusion 16:15: 16:38 1,000 mL, [place] 1,000 mL 00 :00 IV Medical Infusion, Branch ONCE, 1 dose, On 08/21/21 at 1115, Routine, DSU Pre-op mydriatic 2020-10- No .5mL 0.5 mL, Univ ers #5 0-27 08-21 Left Eye, ity of ophthalmic 16:15: 16:38 ONCE, 1 [place] solution 00 :00 dose, On Medical 0.5 mL Wed Branch syringe 08/21/21 at 1115, Routine, DSU Pre-op lactated 2020-10- No 1000mL at 42 Unive rs ringers IV 0-27 10-27 mL/hr, ity of infusion 16:15: 16:38 1,000 mL, [place] 1,000 mL 00 :00 IV Medical Infusion, Branch ONCE, 1 dose, On Thu08/21/21 at 1115, Routine, DSU Pre-op carbachoL 2020-0 Yes PRN, Univers (MIOSTAT) 06-26 Starting ity of 0.01 % 20:18: Thu06/26/21 [place] intraocular 00 at 1518, Medi robert injection Until Branch Discontinu ed, Routine, Intra-op carbachoL 2020-0 Yes PRN, Univers (MIOSTAT) 06-26 Starting ity of 0.01 % 20:18: Thu06/26/21 [place] intraocular 00 at 1518, Medi robert injection Until Branch Discontinu ed, Routine, Intra-op neomycin-po 2020-0 Yes PRN, Univ s lymyxin-dex 06-26 Starting ity of amethasone 16:35: Thu06/26/21 [place] (MAXITROL) 00 at 1135, Medic al 3.5 Until Branch mg/g-10,000 Discontinu unit/g-0.1 ed, % Routine, ophthalmic Intra-op ointment ceFAZolin 0 Yes PRN, Univers (ANCEF) 06-26 Starting ity of injection 16:35: Thu06/26/21 [place] 00 at 1135, Medical Until Branch Discontinu ed, TYLER, Intra-op neomycin-po 2020-0 Yes PRN, [facility] s lymyxin-dex 06-26 Starting ity of amethasone 16:35: Thu06/26/21 [place] (MAXITROL) 00 at 1135, Medic al 3.5 Until Branch mg/g-10,000 Discontinu unit/g-0.1 ed, % Routine, ophthalmic Intra-op ointment ceFAZolin 0 Yes PRN, Univers (ANCEF) 06-26 Starting ity of injection 16:35: Thu06/26/21 [place] 00 at 1135, Medical Until Branch Discontinu ed, TYLER, Intra-op sodium 2020-0 Yes PRN, Univers chloride 06-26 Starting ity of (NS) 16:34: Thu06/26/21 [place] injection 00 at 1134, Medica l Until Branch Discontinu ed, Routine, Intra-op dexamethaso 0 Yes PRN, Univ s ne 06-26 Starting ity of (DECADRON 16:34: Thu06/26/21 [place] PHOSPHATE) 00 at 1134, Medic al injection Until Branch Discontinu ed, Routine, Intra-op sodium 0 Yes PRN, Univers chloride 06-26 Starting ity of (NS) 16:34: Thu06/26/21 [place] injection 00 at 1134, Medica l Until Branch Discontinu ed, Routine, Intra-op dexamethaso Yes PRN, [facility] ne 06-26 Starting ity of (DECADRON 16:34: Thu06/26/21 [place] PHOSPHATE) 00 at 1134, Medic al injection Until Branch Discontinu ed, Routine, Intra-op DUOVISC 0 Yes PRN, Univers (DUOVISC 06-26 Starting ity of VISCO 16:30: Thu06/26/21 [place] ELASTIC) 3 00 at 1130, Medic al %-4 %(0.5 Until Branch mL) 1 % Discontinu (0.55 mL) ed, intraocular Routine, injection Intra-op DUOVISC Yes PRN, Univers (DUOVISC 06-26 Starting ity of VISCO 16:30: Thu06/26/21 [place] ELASTIC) 3 00 at 1130, Medic al %-4 %(0.5 Until Branch mL) 1 % Discontinu (0.55 mL) ed, intraocular Routine, injection Intra-op EPINEPHrine Yes PRN, Univer s 1:1,000 (06-26 Starting ity o f mg/mL) 16:21: Thu06/26/21 [place] (ADRENALIN) 00 at 1121, Medi robert injection Until Branch Discontinu ed, Routine, Intra-op EPINEPHrine Yes PRN, Univer s 1:1,000 (1 06-26 Starting ity o f mg/mL) 16:21: Thu06/26/21 [place] (ADRENALIN) 00 at 1121, Medi robert injection Until Branch Discontinu ed, Routine, Intra-op balanced 0 Yes PRN, Univers salt irrig 06-26 Starting ity o f soln comb1 16:20: Thu06/26/21 [place] (BSS PLUS) 00 at 1120, Medic al ophthalmic Until Branch solution Discontinu 500 mL bag ed, Routine, Intra-op balanced Yes PRN, Univers salt irrig 06-26 Starting ity o f soln comb1 16:20: 06/26/21 [place] (BSS PLUS) 00 at 1120, Medic al ophthalmic Until Branch solution Discontinu 500 mL bag ed, Routine, Intra-op water for Yes PRN, Univers irrigation 06-26 Starting ity o f irrigation 16:13: 06/26/21 [place] solution 00 at 1113, Medical Until Branch Discontinu ed, Routine, Intra-op water for Yes PRN, Univers irrigation 06-26 Starting ity o f irrigation 16:13: 06/26/21 [place] solution 00 at 1113, Medical Until Branch Discontinu ed, Routine, Intra-op Hyaluronida Yes PRN, Univer s se, Human 06-26 Starting ity of Recomb. 16:09: Thu06/26/21 [place] (HYLENEX[place] 00 at 1109, Medica l injection Until Branch Discontinu ed, Routine, Intra-op eye block Yes PRN, Univers syringe 11 06-26 Starting ity o f mL 16:09: 06/26/21 [place] 00 at 1109, Medical Until Branch Discontinu ed, Intra-op Hyaluronida Yes PRN, Univer s se, Human 06-26 Starting ity of Recomb. 16:09: Thu06/26/21 [place] (HYLENEX) 00 at 1109, Medica l injection Until Branch Discontinu ed, Routine, Intra-op eye block Yes PRN, Univers syringe 11 06-26 Starting ity o f mL 16:09: Thu06/26/21 [place] 00 at 1109, Medical Until Branch Discontinu ed, Intra-op mydriatic 2020- No .5mL 0.5 mL, Univ ers #5 06-26 Right Eye, ity of ophthalmic 14:15: 14:12 ONCE, 1 [place] solution 00 :00 dose, Thu Medica l 0.5 mL 06/26/21 at Branch syringe 0915, Routine, DSU Pre-op lactated 2020- No 1000mL at 42 Unive rs ringers IV 06-26 mL/hr, ity of infusion 14:15: 14:12 1,000 mL, [place] 1,000 mL 00 :00 IV Medical Infusion, Branch ONCE, 1 dose, Thu06/26/21 at 0915, Routine, DSU Pre-op mydriatic 2020- No .5mL 0.5 mL, Univ ers #5 06-26 Right Eye, ity of ophthalmic 14:15: 14:12 ONCE, 1 [place] solution 00 :00 dose, Wed Medica l 0.5 mL 06/26/21 at Branch syringe 0915, Routine, DSU Pre-op lactated 2020- No 1000mL at 42 Unive rs ringers IV 06-26 mL/hr, ity of infusion 14:15: 14:12 1,000 mL, [place] 1,000 mL 00 :00 IV Medical Infusion, Branch ONCE, 1 dose, Thu06/26/21 at 0915, Routine, DSU Pre-op mydriatic 2020- No .5mL 0.5 mL, Univ ers #5 06-26 Right Eye, ity of ophthalmic 14:15: 14:12 ONCE, 1 [place] solution 00 :00 dose, Wed Medica l 0.5 mL 06/26/21 at Branch syringe 0915, Routine, DSU Pre-op lactated 2020- No 1000mL at 42 Unive rs ringers IV 06-26 mL/hr, ity of infusion 14:15: 14:12 1,000 mL, [place] 1,000 mL 00 :00 IV Medical Infusion, Branch ONCE, 1 dose, Thu06/26/21 at 0915, Routine, DSU Pre-op mydriatic 2020- No .5mL 0.5 mL, Univ ers #5 06-26 Right Eye, ity of ophthalmic 14:15: 14:12 ONCE, 1 [place] solution 00 :00 dose, Wed Medica l 0.5 mL 06/26/21 at Branch syringe 0915, Routine, DSU Pre-op lactated 2020- No 1000mL at 42 Unive rs ringers IV 06-26 mL/hr, ity of infusion 14:15: 14:12 1,000 mL, [place] 1,000 mL 00 :00 IV Medical Infusion, Branch ONCE, 1 dose, Thu06/26/21 at 0915, Routine, DSU Pre-op lisinopriL- Yes 1{tbl} Take 1 Un jillian hydrochloro 8-06 tablet by ity of thiazide 00:00: mouth [place] 20-12.5 mg 00 daily. Medical per tablet Branch lisinopriL- Yes 1{tbl} Take 1 Un jillian hydrochloro 8-06 tablet by ity of thiazide 00:00: mouth [place] 20-12.5 mg 00 daily. Medical per tablet Branch lisinopriL- Yes 1{tbl} Take 1 Un jillian hydrochloro 8-06 tablet by ity of thiazide 00:00: mouth [place] 20-12.5 mg 00 daily. Medical per tablet Branch lisinopriL- Yes 1{tbl} Take 1 Un jillian hydrochloro 8-06 tablet by ity of thiazide 00:00: mouth [place] 20-12.5 mg 00 daily. Medical per tablet Branch lisinopriL- Yes 1{tbl} Take 1 Un jillian hydrochloro 8-06 tablet by ity of thiazide 00:00: mouth [place] 20-12.5 mg 00 daily. Medical per tablet Branch lisinopriL- Yes 1{tbl} Take 1 Un jillian hydrochloro 8-06 tablet by ity of thiazide 00:00: mouth [place] 20-12.5 mg 00 daily. Medical per tablet Branch lisinopriL- Yes 1{tbl} Take 1 Un jillian hydrochloro 8-06 tablet by ity of thiazide 00:00: mouth [place] 20-12.5 mg 00 daily. Medical per tablet Branch lisinopriL- Yes 1{tbl} Take 1 Un jillian hydrochloro 8-06 tablet by ity of thiazide 00:00: mouth [place] 20-12.5 mg 00 daily. Medical per tablet Branch lisinopriL- Yes 1{tbl} Take 1 Un jillian hydrochloro 8-06 tablet by ity of thiazide 00:00: mouth [place] 20-12.5 mg 00 daily. Medical per tablet Branch lisinopriL- Yes 1{tbl} Take 1 Un jillian hydrochloro 8-06 tablet by ity of thiazide 00:00: mouth [place] 20-12.5 mg 00 daily. Medical per tablet Branch lisinopriL- Yes 1{tbl} Take 1 Un jillian hydrochloro 8-06 tablet by ity of thiazide 00:00: mouth [place] 20-12.5 mg 00 daily. Medical per tablet Branch lisinopriL- Yes 1{tbl} Take 1 Un jillian hydrochloro 8-06 tablet by ity of thiazide 00:00: mouth [place] 20-12.5 mg 00 daily. Medical per tablet Branch Vital Signs Vital Name Observation Time Observation Value Comments Source Systolic blood 2021-08-21 19:30:00 117 mm[Hg] Univer [facility] of [facility] Diastolic blood 2021-08-21 19:30:00 62 mm[Hg] [facility] Heart rate 2021-08-21 19:25:00 78 /min [facility] Respiratory rate 2021-08-21 19:25:00 16 /min [facility] Oxygen saturation in 2021-08-21 19:25:00 96 /min [facility] Arterial blood by [facility] Pulse oximetry Branch Body temperature 2021-08-21 19:12:00 36.89 Tangela [facility] Body height 2021-08-16 16:24:00 165.1 cm [facility] Body weight 2021-08-16 16:24:00 97.07 kg [facility] BMI 2021-08-16 16:24:00 35.61 kg/m2 [facility] Systolic blood 2021-08-21 16:18:00 125 mm[Hg] Univer [facility]ity of [facility] Diastolic blood 2021-08-21 16:18:00 64 mm[Hg] Unive [facility] Heart rate 2021-08-21 16:18:00 78 /min [facility] Body temperature 2021-08-21 16:18:00 36.72 Tangela [facility] Respiratory rate 2021-08-21 16:18:00 16 /min Univ [facility] [place] [facility] Oxygen saturation in 2021-08-21 16:18:00 100 /min University of Arterial blood by [place] [facility] Pulse oximetry Branch Body height 2021-08-16 16:24:00 165.1 cm [facility] [place] [facility] Body weight 2021-08-16 16:24:00 97.07 kg [facility] [place] [facility] BMI 2021-08-16 16:24:00 35.61 kg/m2 [facility] [place] [facility] Systolic blood 2021-06-26 16:55:00 104 mm[Hg] Univer sity of pressure [place] [facility] Diastolic blood 2021-06-26 16:55:00 57 mm[Hg] Unive rsity of pressure [place] [facility] Heart rate 2021-06-26 16:55:00 74 /min [facility] [place] [facility] Respiratory rate 2021-06-26 16:55:00 18 /min Univ [facility] [place] [facility] Oxygen saturation in 2021-06-26 16:55:00 97 /min University of Arterial blood by [facility] Pulse oximetry Branch Body temperature 2021-06-26 16:38:00 36.5 Tangela [facility] [place] [facility] Body height 2021-06-26 14:46:00 167.6 cm [facility] [place] [facility] Body weight 2021-06-26 14:46:00 97.1 kg [facility] [place] [facility] BMI 2021-06-26 14:46:00 34.55 kg/m2 [facility] [place] [facility] Body height 2021-06-26 14:46:00 167.6 cm [facility] [place] [facility] Body weight 2021-06-26 14:46:00 97.1 kg [facility] [place] [facility] BMI 2021-06-26 14:46:00 34.55 kg/m2 [facility] [place] [facility] Systolic blood 2021-06-26 14:08:00 128 mm[Hg] Univer sity of [facility] [place] [facility] Diastolic blood 2021-06-26 14:08:00 65 mm[Hg] Unive rsity of [facility] [place] [facility] Heart rate 2021-06-26 14:08:00 85 /min [facility] [place] [facility] Body temperature 2021-06-26 14:08:00 36.06 Tangela [facility] Respiratory rate 2021-06-26 14:08:00 18 /min [facility] Oxygen saturation in 2021-06-26 14:08:00 98 /min [facility] blood by [facility] Pulse oximetry Branch Procedures Procedure Date / Time Performing Source Performed Clinician PHACOEMULSIFICATION OF 2021-08-21 Anastacio Grimaldo [facility] [place] CATARACT WITH INTRAOCULAR 18:37:00 Medica l Branch LENS IMPLANT DAY SURGERY - [facility] 2021-08-21 Doctor Unassigned, [facility] 05:01:00 [place] [facility] PHACOEMULSIFICATION OF 2021-06-26 Anastacio Grimaldo [facility] CATARACT WITH INTRAOCULAR 16:00:00 Medica l [place] LENS IMPLANT DAY SURGERY - [facility] 2021-06-26 Doctor Unassigned, [facility] 05:01:00 [place] [facility] [place] ASSIGNMENT OF BENEFITS 2021-06-17 Doctor Unassigned, [facility] 22:00:50 [place] [facility] [place] Encounters Start End Encounter Admission Attending Care Care Encounter Source Date/Time Date/Time Type Type Clinicians Facility Department ID 2021-08-26 Outpatient [facility] [id number] Univers 17:31:55 [facility] 2021-08-21 2021-08-21 Hospital [facility] [id number] Univers 11:05:00 14:31:00 Encounter Anastacio Valencia [id number] [id number] [id number] [facility] 071 Branch 2021-08-21 2021-08-21 Outpatient [facility] [id number] Univers 11:05:00 14:31:00 ANASTACIO [facility] 2021-08-21 2021-08-21 Surgery [facility] [id number] Univers 13:19:00 13:58:00 Anastacio VALENCIA [id number] it[id number] [id number] [facility] 020 Branch 2021-08-21 2021-08-21 Orders Doctor SAMMY [id number] Univers 00:00:00 00:00:00 Only Unassigned, BUNNY [id number] ity of [place] H[facility] [id number] [place] [id number] [facility] 009 Branch 2021-08-19 2021-08-19 Laboratory Only, Adc Test [facility] [id number] Univers 11:53:59 12:08:59 Only Nilesh Anastacio Yoder Erik [id number] 0 [id number] [id number] [facility] 353 Branch 2021-08-19 2021-08-19 Outpatient [facility] [id number] Univers 11:45:00 11:45:00 ANASTACIO [facility] 2021-07-30 2021-07-30 Outpatient [facility] [id number] Univers 09:00:00 09:00:00 ANASTACIO [facility] 2021-06-26 2021-06-26 Hospital [facility] [id number] Univers 09:00:00 12:05:00 Encounter Anastacio Beba Erik [id number] [id number] [id number] [facility] 071 Branch 2021-06-26 2021-06-26 Surgery [facility] [id number] Univers 10:49:00 11:28:00 Anastacio Beba Erik [id number] [id number] [id number] [facility] 020 Branch 2021-06-26 2021-06-26 Orders Doctor CHRISTIANSON [id number] Univers 00:00:00 00:00:00 Only Unassigned, BUNNY [id number] ity of [place] HOSPITAL [id number] [place] [id number] [facility] 009 Branch 2021-06-24 2021-06-24 Laboratory Only, Adc Test [facility] [id number]. [id number] Univers 14:53:58 15:08:58 Only Anastacio Grimaldo [id number] 0 [id number] [id number] [address] 2021-06-24 2021-06-24 Outpatient [facility] [id number] Univers 11:15:00 11:15:00 ANASTACIO mcclellan [facility] 2021-06-17 2021-06-17 Pupil Personnel Services Director Carissa, Adc Lab Main [facility] [id number] Univers 17:11:11 17:26:11 Visit Anastacio Grimaldo [id number] 0 ity of [place] [id number] [facility] [id number] [place] [address] 2021-06-17 2021-06-17 Outpatient R [facility] [id number] Univers 16:15:00 16:15:00 ANASTACIO mcclellan [facility] 2021-06-17 2021-06-17 Orders Doctor SAMMY [id number] Univers 00:00:00 00:00:00 Only Unassigned, BUNNY [id number] ity of [place] [facility] [id number] [place] [id number] [facility] 009 Branch 2018-11-17 2018-11-17 Outpatient G_[facility] [id number] [place] 05:44:00 05:44:00 0123 [facility] Results This patient has no known results.
--- NOTE | 2022-09-23 21:17 | RAD REPORT ---
EXAM DESCRIPTION: RAD - Chest Single View - 09/23/2022 9:11 pm CLINICAL HISTORY: COUGH Chest pain. COMPARISON: Abdomen 1 View (KUB) dated 04/11/2019; Abdomen 1 View (KUB) dated 01/03/2019; Abdomen 1 Vi ew (KUB) dated 12/21/2018; Abdomen 1 View (KUB) dated 12/13/2018 FINDINGS: Portable technique limits examination quality. Mildly prominent interstitial lung markings bilaterally probably representing mild viral infection or chronic bronchitis. The heart is normal in size. No displaced fractures.
[2022-09-23 21:37] LABS: SARS-COV-2 RT PCR NEGATIVE (NEGATIVE)
[2022-09-23] MEDS ORDERED: METHYLPREDNISOLONE 125 MG INJ ONE (22:29)
[2022-09-23] MEDS ORDERED: OSELTAMIVIR 75 MG CAP PO ONE (22:29)
[2022-09-23] MEDS ORDERED: ACETAMINOPHEN 500 MG TAB ONE (22:29)
[2022-09-23] MEDS ORDERED: LEVALBUTEROL 1.25 MG/3 ML NEB ONE (22:30)
[2022-09-23] MEDS ORDERED: predniSONE 20 MG TAB ONE (22:30)
[2022-09-23] MEDS ORDERED: AZITHROMYCIN 250 MG TAB ONE (22:30)
[2022-09-23] MEDS ORDERED: CEFTRIAXONE 1000 MG/VIAL ONE (22:30)
[2022-09-23] MEDS ORDERED: IPRATROPIUM BROM 0.5MG/2.5ML ONE (22:31)
[2022-09-23] MEDS ORDERED: NA CHLORIDE 0.9% 1,000 ML ONE (22:31)
[2022-09-23 23:44] LABS: Protime INR 1.05
[2022-09-23 23:45] LABS: Absolute Lymphocytes (CBC) 0.7 K/uL (0.7-4.9); Hematocrit 41.5 % (36.0-45.0); Lymphocytes % 9.8 % (15.3-44.8); MPV 7.8 fL (7.6-11.3); RBC Red Blood Cell Count 4.28 M/uL (3.86-4.86)
[2022-09-23 23:55] LABS: Potassium 3.8 mmol/L (3.5-5.1)
[2022-09-23 23:56] LABS: Bilirubin Direct 0.2 mg/dL (0-0.2); Bilirubin Total 0.9 mg/dL (0.2-1.0); Magnesium 1.7 mg/dL (1.8-2.4); Troponin High Sensitivity 4.9 pg/mL (<58.9)
--- NOTE | 2022-09-24 00:01 | ER ---
Nurse's Notes [facility] Name: Natasha Kim Age: 71 yrs Sex: Female : 1950 Arrival Date: 09/23/2022 Time: 20:00 Bed 18 Private MD: Diagnosis: Fever, unspecified;Influenza due to identified novel influenza A virus;Acute upper respiratory infection, unspecified;Hypomagnesemia Presentation: 09/23 20:07 Chief complaint: Patient states: Cough, dizziness X 1 day. Coronavirus screen: At this ld1 time, the client does not indicate any symptoms associated with coronavirus-19. Ebola Screen: No symptoms or risks identified at this time. Initial Sepsis Screen: Does the patient meet any 2 criteria? No. Patient's initial sepsis screen is negative. Does the patient have a suspected source of infection? No. Patient's initial sepsis screen is negative. Risk Assessment: Do you want to hurt yourself or someone else? Patient reports no desire to harm self or others. Onset of symptoms was September 23, 2022. 20:07 Method Of Arrival: Ambulatory ld1 20:07 Acuity: KEN 4 ld1 Triage Assessment: 20:07 General: Appears in no apparent distress. comfortable, Behavior is calm, cooperative, ld1 appropriate for age. Pain: Denies pain. EENT: No signs and/or symptoms were reported regarding the EENT system. Neuro: Level of Consciousness is awake, alert, obeys commands, Oriented to person, place, time, situation. Cardiovascular: Capillary refill < 3 seconds Patient's skin is warm and dry. Respiratory: Airway is patent Respiratory effort is even, unlabored. GI: Abdomen is flat, non-distended. : No signs and/or symptoms were reported regarding the genitourinary system. Derm: No signs and/or symptoms reported regarding the dermatologic system. Musculoskeletal: No signs and/or symptoms reported regarding the musculoskeletal system. Historical: - Allergies: 20:07 No Known Allergies; ld1 - PMHx: 20:07 Hypertension; Kidney stones; TIA; ld1 - PSHx: 20:07 Cholecystectomy; ld1 - Immunization history:: Adult Immunizations up to date, Client reports receiving the 2nd dose of the Covid vaccine. - Social history:: Smoking status: Patient denies any tobacco usage or history of. Patient/guardian denies using alcohol. Screenin:20 Abuse screen: Denies threats or abuse. Nutritional screening: No deficits noted. jj7 Tuberculosis screening: No symptoms or risk factors identified. Fall Risk None identified. Assessment: 22:20 General: Appears in no apparent distress. uncomfortable, Behavior is calm, cooperative, jj7 appropriate for age. Neuro: Reports headache. Respiratory: Reports cough that is dry, persistent. Vital Signs: 20:07 BP 130 / 67; Pulse 102; Resp 18; Temp 99.7(O); Pulse Ox 100% on R/A; Weight 91.63 kg; ld1 Height 5 ft. 7 in. (170.18 cm); Pain 0/10; 23:09 BP 135 / 51; Pulse 124; Resp 20; Pulse Ox 94% ; jj7 09/24 00:08 BP 125 / 59; Pulse 105; Resp 20; Pulse Ox 93% ; jj7 01:15 BP 109 / 50; Pulse 96; Resp 17; Pulse Ox 95% ; Pain 0/10; jj7 09/23 20:07 Body Mass Index 31.64 (91.63 kg, 170.18 cm) ld1 ED Course: 09/23 20:00 Patient arrived in ED. ja2 20:07 Arm band placed on right wrist. ld1 20:08 Triage completed. ld1 20:08 Larissa Cartwright, RACHEL is Primary Nurse. ld1 20:10 COVID-19/FLU A+B Sent. ld1 20:13 Mayur Pope MD is Attending Physician. [facility] 21:13 XRAY Chest (1 view) In Process Unspecified. EDMS 22:20 Allergy band placed. Bed in low position. Call light in reach. Side rails up X2. jj7 22:20 No provider procedures requiring assistance completed. jj7 22:40 Inserted saline lock: 20 gauge in right antecubital area, using aseptic technique. jj7 Blood collected. 23:06 Blood Culture Adult (2) Sent. jj7 09/24 01:15 IV discontinued, intact, bleeding controlled, No redness/swelling at site. Pressure jj7 dressing applied. Administered Medications: 09/23 22:40 Drug: Xopenex (levalbuterol) 2.5 mg Route: Inhalation; jj7 09/24 00:10 Follow up: Response: No adverse reaction 09/23 22:40 Drug: AtroVENT (ipratropium) Aerosol 0.5 mg Route: Inhalation; 09/24 00:10 Follow up: Response: No adverse reaction 09/23 22:45 Drug: NS 0.9% 1000 ml Route: IV; Rate: 1000 ml; Site: right antecubital; 09/24 00:11 Follow up: Response: No adverse reaction; IV Status: Completed infusion 09/23 22:45 Drug: Rocephin (cefTRIAXone) 1 grams Route: IV; Rate: per protocol; Site: right [facility] antecubital; 22:45 Drug: SOLU-Medrol (methylPrednisoLONE) 125 mg Route: IVP; Site: right antecubital; 09/24 00:10 Follow up: Response: No adverse reaction 00:11 Follow up: Response: No adverse reaction 09/23 23:05 Drug: Tamiflu (oseltamivir) 75 mg Route: PO; 09/24 00:09 Follow up: Response: No adverse reaction 09/23 23:05 Drug: predniSONE 40 mg Route: PO; 09/24 00:09 Follow up: Response: No adverse reaction 09/23 23:06 Drug: Tylenol 1000 mg Route: PO; 09/24 00:12 Follow up: Response: Pain is decreased 09/23 23:06 Drug: Zithromax (azithromycin) 500 mg Route: PO; 09/24 00:11 Follow up: Response: No adverse reaction 7 00:19 Drug: Magnesium Sulfate 1 grams Route: IVPB; Infused Over: 1 hrs; Site: right [facility] antecubital; 01:14 Follow up: IV Status: Completed infusion Medication: 09/23 22:20 VIS not applicable for this client. jj7 Outcome: 09/24 00:01 Discharge ordered by MD. olivo 01:15 Discharged to home ambulatory. jj7 01:15 Condition: improved 01:15 Discharge instructions given to patient, Instructed on discharge instructions, medication usage, Demonstrated understanding of instructions, medications, Prescriptions given X 4. 01:16 Patient left the ED. jj7 Signatures: Dispatcher [employer] Mayur Mi MD MD cha Dibbern, Lauren, RN RN ld1 Meredith Irvin Juwairiyah, RN RN jj7
--- NOTE | 2022-09-24 00:01 | EDPHYS ---
Physician Documentation [facility] Name: Natasha Kim Age: 71 yrs Sex: Female : 1950 Arrival Date: 09/23/2022 Time: 20:00 Bed 18 Private MD: ELI Physician Mayur Pope HPI: 09/23 22:10 This 71 yrs old Female presents to ER via Ambulatory with complaints of geovani Cough, Dizziness. 22:10 The patient or guardian reports airway noise, cough, flu symptoms, arthralgias, geovani low-grade fever, myalgias. Onset: The symptoms/episode began/occurred 2 day(s) ago. Onset: The symptoms/episode began/occurred. Severity of symptoms: At their worst the symptoms were mild, in the emergency department the symptoms are unchanged. Modifying factors: The symptoms are alleviated by nothing, the symptoms are aggravated by nothing. Associated signs and symptoms: Pertinent positives: fever, rhinorrhea, sore throat. The patient has not experienced similar symptoms in the past. Historical: - Allergies: 20:07 No Known Allergies; ld1 - PMHx: 20:07 Hypertension; Kidney stones; TIA; ld1 - PSHx: 20:07 Cholecystectomy; ld1 - Immunization history:: Adult Immunizations up to date, Client reports receiving the 2nd dose of the Covid vaccine. - Social history:: Smoking status: Patient denies any tobacco usage or history of. Patient/guardian denies using alcohol. ROS: 22:11 Eyes: Negative for injury, pain, redness, and discharge, ENT: Negative for injury, geovani pain, and discharge, Neck: Negative for injury, pain, and swelling, Cardiovascular: Negative for chest pain, palpitations, and edema, Abdomen/GI: Negative for abdominal pain, nausea, vomiting, diarrhea, and constipation, Back: Negative for injury and pain, : Negative for injury, bleeding, discharge, and swelling, MS/Extremity: Negative for injury and deformity, Skin: Negative for injury, rash, and discoloration, Neuro: Negative for headache, weakness, numbness, tingling, and seizure, Psych: Negative for depression, anxiety, suicide ideation, homicidal ideation, and hallucinations, Allergy/Immunology: Negative for hives, rash, and allergies, Endocrine: Negative for neck swelling, polydipsia, polyuria, polyphagia, and marked weight changes, Hematologic/Lymphatic: Negative for swollen nodes, abnormal bleeding, and unusual bruising. 22:11 Constitutional: Positive for body aches, fever, malaise. Exam: 22:11 Constitutional: This is a well developed, well nourished patient who is awake, alert, geovani and in no acute distress. Head/Face: Normocephalic, atraumatic. Eyes: Pupils equal round and reactive to light, extra-ocular motions intact. Lids and lashes normal. Conjunctiva and sclera are non-icteric and not injected. Cornea within normal limits. Periorbital areas with no swelling, redness, or edema. ENT: Nares patent. No nasal discharge, no septal abnormalities noted. Tympanic membranes are normal and external auditory canals are clear. Oropharynx with no redness, swelling, or masses, exudates, or evidence of obstruction, uvula midline. Mucous membranes moist. Neck: Trachea midline, no thyromegaly or masses palpated, and no cervical lymphadenopathy. Supple, full range of motion without nuchal rigidity, or vertebral point tenderness. No Meningismus. Chest/axilla: Normal chest wall appearance and motion. Nontender with no deformity. No lesions are appreciated. Cardiovascular: Regular rate and rhythm with a normal S1 and S2. No gallops, murmurs, or rubs. Normal PMI, no JVD. No pulse deficits. Abdomen/GI: Soft, non-tender, with normal bowel sounds. No distension or tympany. No guarding or rebound. No evidence of tenderness throughout. Back: No spinal tenderness. No costovertebral tenderness. Full range of motion. Female : Normal external genitalia. Skin: Warm, dry with normal turgor. Normal color with no rashes, no lesions, and no evidence of cellulitis. MS/ Extremity: Pulses equal, no cyanosis. Neurovascular intact. Full, normal range of motion. Neuro: Awake and alert, GCS 15, oriented to person, place, time, and situation. Cranial nerves II-XII grossly intact. Motor strength 5/5 in all extremities. Sensory grossly intact. Cerebellar exam normal. Normal gait. Psych: Awake, alert, with orientation to person, place and time. Behavior, mood, and affect are within normal limits. 22:11 Respiratory: the patient does not display signs of respiratory distress, Respirations: normal, Breath sounds: bronchial sounds, that are mild, rhonchi, that are mild, are scattered, stridor, is not appreciated, + upper airway congestion. wheezing: expiratory 23:58 ECG was reviewed by the Attending Physician. [facility] Vital Signs: 20:07 BP 130 / 67; Pulse 102; Resp 18; Temp 99.7(O); Pulse Ox 100% on R/A; Weight 91.63 kg; ld1 Height 5 ft. 7 in. (170.18 cm); Pain 0/10; 23:09 BP 135 / 51; Pulse 124; Resp 20; Pulse Ox 94% ; jj7 09/24 00:08 BP 125 / 59; Pulse 105; Resp 20; Pulse Ox 93% ; jj7 01:15 BP 109 / 50; Pulse 96; Resp 17; Pulse Ox 95% ; Pain 0/10; jj7 09/23 20:07 Body Mass Index 31.64 (91.63 kg, 170.18 cm) ld1 MDM: 09/23 20:13 Patient medically screened. geovani 22:13 Differential diagnosis: asthma, Bronchitis CHF exacerbation, Chronic Obstructive geovani Pulmonary Disease obstructed airway, bronchitis, flu, URI, pneumonia, reactive airway disease, Sepsis Unstable Angina. Antibiotic administration: Rocephin and Zithromax given. The patient's [place] Deep Vein Thrombosis Score was calculated as follows: Heart Rate >100 BPM (1.5 Pts) Total Score: 0-2 Pts- Low Risk. Differential Diagnosis: Bronchitis Influenza Upper Respiratory Infection Viral Syndrome Pneumonia. The patient's pulmonary embolism risk score was calculated as follows: the patients heart rate is greater than 100 beats per minute (1.5 Pts). Immunization status: Pneumococcal vaccine: Influenza vaccine: Not up to date. Data reviewed: vital signs, nurses notes, lab test result(s), EKG, radiologic studies, plain films. 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 Test interpretation: by ED physician or midlevel provider: ECG, plain radiologic studies. Counseling: I had a detailed discussion with the patient and/or guardian regarding: the historical points, exam findings, and any diagnostic results supporting the discharge/admit diagnosis, lab results, radiology results. 09/23 20:09 Order name: COVID-19/FLU A+B; Complete Time: 22:15 ld1 09/23 20:14 Order name: Basic Metabolic Panel; Complete Time: 00:00 [facility] 09/23 20:14 Order name: CBC with Diff; Complete Time: 00:00 [facility] 09/23 20:14 Order name: LFT's; Complete Time: 00:00 [facility] 09/23 20:14 Order name: Magnesium; Complete Time: 00:00 [facility] 09/23 20:14 Order name: NT PRO-BNP; Complete Time: 00:00 [facility] 09/23 20:14 Order name: PT-INR; Complete Time: 23:44 [facility] 09/23 20:14 Order name: Troponin HS; Complete Time: 00:00 [facility] 09/23 20:14 Order name: XRAY Chest (1 view); Complete Time: 21:46 [facility] 09/23 20:14 Order name: Blood Culture Adult (2) [facility] 09/23 20:14 Order name: Lactate w/ 2H reflex if indic.; Complete Time: 00:00 [facility] 09/23 20:14 Order name: EKG; Complete Time: 20:15 [facility] 09/23 20:14 Order name: Cardiac monitoring; Complete Time: 23:04 [facility] 09/23 20:14 Order name: EKG - Nurse/Tech [facility] 09/23 20:14 Order name: IV Saline Lock; Complete Time: 23:04 [facility] 09/23 20:14 Order name: Labs collected and sent; Complete Time: 23:01 [facility] 09/23 20:14 Order name: O2 Per Protocol; Complete Time: 23:01 [facility] 09/23 20:14 Order name: O2 Sat Monitoring; Complete Time: 23:01 [facility] EC:58 Rate is 113 beats/min. Rhythm is regular. QRS [place] is Normal. TN interval is normal. [facility] QRS interval is normal. QT interval is normal. No Q waves. T waves are Normal. No ST changes noted. Clinical impression: Sinus tachycardia and No evidence of ischemia. Interpreted by me. Reviewed by me. Administered Medications: 22:40 Drug: Xopenex (levalbuterol) 2.5 mg Route: Inhalation; 09/24 00:10 Follow up: Response: No adverse reaction [facility] 09/23 22:40 Drug: AtroVENT (ipratropium) Aerosol 0.5 mg Route: Inhalation; 09/24 00:10 Follow up: Response: No adverse reaction 09/23 22:45 Drug: NS 0.9% 1000 ml Route: IV; Rate: 1000 ml; Site: right antecubital; 09/24 00:11 Follow up: Response: No adverse reaction; IV Status: Completed infusion 09/23 22:45 Drug: Rocephin (cefTRIAXone) 1 grams Route: IV; Rate: per protocol; Site: right [facility] antecubital; 22:45 Drug: SOLU-Medrol (methylPrednisoLONE) 125 mg Route: IVP; Site: right antecubital; 09/24 00:10 Follow up: Response: No adverse reaction 00:11 Follow up: Response: No adverse reaction 09/23 23:05 Drug: Tamiflu (oseltamivir) 75 mg Route: PO; 09/24 00:09 Follow up: Response: No adverse reaction 09/23 23:05 Drug: predniSONE 40 mg Route: PO; 09/24 00:09 Follow up: Response: No adverse reaction 09/23 23:06 Drug: Tylenol 1000 mg Route: PO; 09/24 00:12 Follow up: Response: Pain is decreased 09/23 23:06 Drug: Zithromax (azithromycin) 500 mg Route: PO; 09/24 00:11 Follow up: Response: No adverse reaction 00:19 Drug: Magnesium Sulfate 1 grams Route: IVPB; Infused Over: 1 hrs; Site: right [facility] antecubital; 01:14 Follow up: IV Status: Completed infusion Disposition Summary: 09/24/22 00:01 Discharge Ordered Location: Home geovani Problem: new geovani Symptoms: have improved geovani Condition: Fair geovani Diagnosis - Fever, unspecified geovani - Influenza due to identified novel influenza A virus geovani - Acute upper respiratory infection, unspecified geovani - Hypomagnesemia geovani Followup: geovani - With: Private Physician - When: 2 - 3 days - Reason: Recheck today's complaints, Continuance of care, Re-evaluation by your physician Discharge Instructions: - Discharge Summary Sheet geovani - Fever, Adult geovani - Upper Respiratory Infection, Adult geovani - Cool Mist Vaporizer geovani - Upper Respiratory Infection, Adult, [id number] geovani - Hypomagnesemia geovani - Influenza, Adult, [id number] [facility] - Cough, Adult [facility] Forms: - Medication Reconciliation Form [facility] - Thank You Letter geovani - Antibiotic Education geovani - Prescription Opioid Use [facility] Prescriptions: - Medrol ([place]re[place]) 4 mg Oral Tablets, Dose Pack - take 1 tablet by ORAL route as directed - follow package instructions; 1 geovani packet; Refills: 0, Product Selection Permitted - Tamiflu 75 mg Oral Capsule - take 1 tablet by ORAL route every 12 hours for 5 days; 10 tablet; Refills: 0, [facility] Product Selection Permitted - Zithromax 500 mg Oral Tablet - take 1 tablet by ORAL route once daily for 5 days; 5 tablet; Refills: 0, [facility] Product Selection Permitted - albuterol sulfate 90 mcg/actuation Inhalation HFA aerosol inhaler - inhale 2 puff by INHALATION route every 4-6 hours; 1 Pump; Refills: 0, Product cp Selection Permitted Signatures: Dispatcher [employer] Mayur Mi MD MD cha Dibbern, Lauren RN RN ld1 Alysha Galloway RN RN jj7
[2022-09-24] MEDS ORDERED: MAGNESIUM SULFATE 1 gm IVPB 1 GM/100 ML BAG IV ONE (00:16)
[2022-09-24 01:32] VITALS: TEMP 99.7
[2022-09-24 01:36] VITALS: BP 109/50; O2SAT 95
--- NOTE | 2022-09-24 16:25 | EKG ---
Test Date: 2022-09-23 Test Time: 23:34:01 Caddy: FABI MEASUREMENT RESULTS: Intervals: Rate: 113 RI: 180 QRSD: 80 QT: 338 QTc: 463 Deary: P: 57 RI: 180 QRS: 70 T: 26 INTERPRETIVE STATEMENTS: Sinus tachycardia Otherwise normal ECG Compared to ECG 11/22/2018 11:23:52 Sinus rhythm no longer present Electronically Signed On 09-24-22 16:22:56 CORRIDOR REDEVELOPMENT MANAGER by Garrett Gilbert
== END 2022-09-24 01:16 | disposition home or self-care (01) ==
LOC: ER 19:54
DX: J10.1 Influenza due to other identified influenza virus with other respiratory manifestations (principal); E83.42 Hypomagnesemia; Z20.822 Contact with and (suspected) exposure to COVID-19
CPT/HCPCS: 96365; 96361; 93005; 87040 ×2; 85025; 80048; 36415; 83735; 85610; 80076; 83605; 84484; 83880; 0240U; 71045; 96375; 99284; J7614; J7512; Q0144; J7644; J3475; J7030; J2930

== ENCOUNTER → 2023-12-10 | Emergency (ER) | payer OTHER ==
[~2023-12-10] MED LIST: MORPHINE 4 MG/ML SYR ONE; NA CHLORIDE 0.9% 1,000 ML ONE; ONDANSETRON 4 MG/2 ML VIAL ONE
--- OUTSIDE RECORDS SUMMARY | 2023-12-10 13:18 | XMS REPORT | Continuity of Care Document ---
Author Name Unknown Address [address] [facility] [address] [place] [address] [facility] [address] [facility] 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 Name Role Phone Aron Love Primary Care Physician [phone] HUY GRIMALDO Attending Clinician Unavailab le [email or web address]_S Attending Clinician UnavailHuy Raymond MD Attending Clinician [phone] Doctor Unassigned, [place] Attending Clinician U navailable Only, Adc Test Attending Clinician Unavailable Pob, Adc Lab Main Attending Clinician Unavailabl e G_Papmadis Attending Clinician Unavailable HUY GRIMALDO Admitting Clinician Unavailab le [id number]_S Admitting Clinician Huy Arreguin MD Admitting Clinician [phone] Elio Admitting Clinician Unavailable Payers Payer Name Policy Type Policy Number Effective Date Expirati on Date Source [facility] MEDICARE COMPLETE CHOICE [id number] 2020 00:00:00 [place]: [employer] [id number] 2016 00:00:00 Problems Condition Name Condition Details Condition Category Status Onset Date Resolution Date Last Treatment Date Treating Clinician Comments Source Essential hypertensi on Essential hypertensi on Disease Active 06-26 00:00: 00 [facility] Allergies, Adverse Reactions, Alerts Allergy Name Allergy Type Status Severity Reaction(s) Onset Date Inactive Date Treating Clinician Comments Source NO KNOWN ALLERGIE S Drug Class Active [facility] Social History Social Habit Start Date Stop Date Quantity Comments Source History SDOH Alcohol Comment [place] [facility] Exposure to SARS-CoV-2 (event) Not sure [facility] History SDOH Alcohol Std Drinks [facility] History SDOH Alcohol Binge [facility] Alcohol intake 2021-08-21 00:00:00 2021-08-21 00:00:00 Lifetime non-drinker (finding) [facility] History SDOH Alcohol Frequency 2021-06-26 00:00:00 2021-06-26 00:00:00 1 [facility] Tobacco use and exposure 2021-06-24 00:00:00 2021-06-24 00:00:00 Never used [facility] Sex Assigned At 1950 00:00:00 1950 00:[birth year]:00 [facility] Smoking Status Start Date Stop Date Source Unknown [facility] Medications Ordered Medication Name Filled Medication Name Start Date Stop Date Current Medication? Ordering Clinician Indication Dosage Frequency Signature (SIG) Comments Components Source mydriatic #5 ophthalmic solution 0.5 mL syringe 2020-10 16:15: 00 08-21 16:38 :00 No .5mL 0.5 mL, Left Eye, ONCE, 1 dose, On Thu08/21/21 at 1115, Routine, DSU Pre-op [facility] lactated ringers IV infusion 1,000 mL 2020-10 16:15: 00 08-21 16:38 :00 No 1000mL at 42 mL/hr, 1,000 mL, IV Infusion, ONCE, 1 dose, On Thu08/21/21 at 1115, Routine, DSU Pre-op [facility] mydriatic #5 ophthalmic solution 0.5 mL syringe 2020-10 16:15: 00 08-21 16:38 :00 No .5mL 0.5 mL, Left Eye, ONCE, 1 dose, On Thu08/21/21 at 1115, Routine, DSU Pre-op [facility] lactated ringers IV infusion 1,000 mL 2020-10 16:15: 00 08-21 16:38 :00 No 1000mL at 42 mL/hr, 1,000 mL, IV Infusion, ONCE, 1 dose, On Thu08/21/21 at 1115, Routine, [facility] ([facility]OSTAT[facility] 0.01 % intraocular injection 06-26 20:18: 00 Yes PRN, Starting Thu06/26/21 at 1518, Until Discontinu ed, Routine, Intra-op [facility] carbachoL (MIOSTAT) 0.01 % intraocular injection 06-26 20:18: 00 Yes PRN, Starting Thu06/26/21 at 1518, Until Discontinu ed, Routine, [facility] neomycin-po lymyxin-dex amethasone (MAXITROL) 3.5 mg/g-10,000 unit/g-0.1 % ophthalmic ointment 06-26 16:35: 00 Yes PRN, Starting Thu06/26/21 at 1135, Until Discontinu ed, Routine, Intra-op [facility] ceFAZolin (ANCEF) injection 06-26 16:35: 00 Yes PRN, Starting Thu06/26/21 at 1135, Until Discontinu ed, [place]YLER, Intra-op [facility] neomycin-po lymyxin-dex amethasone (MAXITROL) 3.5 mg/g-10,000 unit/g-0.1 % ophthalmic ointment 06-26 16:35: 00 Yes PRN, Starting Thu06/26/21 at 1135, Until Discontinu ed, Routine, Intra-op [facility] ceFAZolin (ANCEF) injection 06-26 16:35: 00 Yes PRN, Starting Thu06/26/21 at 1135, Until Discontinu ed, TYLER, Intra-op [facility] dexamethaso ne (DECADRON PHOSPHATE) injection 06-26 16:34: 00 Yes PRN, Starting Thu06/26/21 at 1134, Until Discontinu ed, Routine, Intra-op [facility] sodium chloride (NS) injection 06-26 16:34: 00 Yes PRN, Starting Thu06/26/21 at 1134, Until Discontinu ed, Routine, Intra-op [facility] dexamethaso ne (DECADRON PHOSPHATE) injection 06-26 16:34: 00 Yes PRN, Starting Thu06/26/21 at 1134, Until Discontinu ed, Routine, Intra-op [facility] sodium chloride (NS) injection 06-26 16:34: 00 Yes PRN, Starting Thu06/26/21 at 1134, Until Discontinu ed, Routine, Intra-op [facility] DUOVISC (DUOVISC VISCO ELASTIC) 3 %-4 %(0.5 mL) 1 % (0.55 mL) intraocular injection 06-26 16:30: 00 Yes PRN, Starting Thu06/26/21 at 1130, Until Discontinu ed, Routine, Intra-op [facility] DUOVISC (DUOVISC VISCO ELASTIC) 3 %-4 %(0.5 mL) 1 % (0.55 mL) intraocular injection 06-26 16:30: 00 Yes PRN, Starting Thu06/26/21 at 1130, Until Discontinu ed, Routine, Intra-op [facility] EPINEPHrine 1:1,000 (1 mg/mL) (ADRENALIN) injection 06-26 16:21: 00 Yes PRN, Starting Thu06/26/21 at 1121, Until Discontinu ed, Routine, Intra-op [facility] EPINEPHrine 1:1,000 (1 mg/mL) (ADRENALIN) injection 06-26 16:21: 00 Yes PRN, Starting Thu06/26/21 at 1121, Until Discontinu ed, Routine, Intra-op [facility] balanced salt irrig soln comb1 (BSS PLUS) ophthalmic solution 500 mL bag 06-26 16:20: 00 Yes PRN, Starting Thu06/26/21 at 1120, Until Discontinu ed, Routine, Intra-op [facility] balanced salt irrig soln comb1 (BSS PLUS) ophthalmic solution 500 mL bag 06-26 16:20: 00 Yes PRN, Starting Thu06/26/21 at 1120, Until Discontinu ed, Routine, Intra-op [facility] water for irrigation irrigation solution 06-26 16:13: 00 Yes PRN, Starting Thu06/26/21 at 1113, Until Discontinu ed, Routine, Intra-op [facility] water for irrigation irrigation solution 06-26 16:13: 00 Yes PRN, Starting Thu06/26/21 at 1113, Until Discontinu ed, Routine, Intra-op [facility] Hyaluronida se, Human Recomb. (HYLENEX) injection 06-26 16:09: 00 Yes PRN, Starting Thu06/26/21 at 1109, Until Discontinu ed, Routine, Intra-op [facility] eye block syringe 11 mL 06-26 16:09: 00 Yes PRN, Starting Thu06/26/21 at 1109, Until Discontinu ed, Intra-op [facility] Hyaluronida se, Human Recomb. (HYLENEX) injection 06-26 16:09: 00 Yes PRN, Starting Thu06/26/21 at 1109, Until Discontinu ed, Routine, Intra-op [facility] eye block syringe 11 mL 06-26 16:09: 00 Yes PRN, Starting Thu06/26/21 at 1109, Until Discontinu ed, Intra-op [facility] mydriatic #5 ophthalmic solution 0.5 mL syringe 06-26 14:15: 00 06-26 14:12 :00 No .5mL 0.5 mL, Right Eye, ONCE, 1 dose, Thu06/26/21 at 0915, Routine, DSU Pre-op [facility] lactated ringers IV infusion 1,000 mL 06-26 14:15: 00 06-26 14:12 :00 No 1000mL at 42 mL/hr, 1,000 mL, IV Infusion, ONCE, 1 dose, Thu06/26/21 at 0915, Routine, DSU Pre-op [facility] mydriatic #5 ophthalmic solution 0.5 mL syringe 06-26 14:15: 00 06-26 14:12 :00 No .5mL 0.5 mL, Right Eye, ONCE, 1 dose, Thu06/26/21 at 0915, Routine, DSU Pre-op [facility] lactated ringers IV infusion 1,000 mL 06-26 14:15: 00 06-26 14:12 :00 No 1000mL at 42 mL/hr, 1,000 mL, IV Infusion, ONCE, 1 dose, Thu06/26/21 at 0915, Routine, DSU Pre-op [facility] mydriatic #5 ophthalmic solution 0.5 mL syringe 06-26 14:15: 00 06-26 14:12 :00 No .5mL 0.5 mL, Right Eye, ONCE, 1 dose, Thu06/26/21 at 0915, Routine, [facility]ers [facility] 1,000 mL 06-26 14:15: 00 06-26 14:12 :00 No 1000mL at 42 mL/hr, 1,000 mL, IV Infusion, ONCE, 1 dose, Thu06/26/21 at 0915, Routine, DSU Pre-op [facility] mydriatic #5 ophthalmic solution 0.5 mL syringe 06-26 14:15: 00 06-26 14:12 :00 No .5mL 0.5 mL, Right Eye, ONCE, 1 dose, Thu06/26/21 at 0915, Routine, DSU [facility] lact[facility]ers [facility] 1,000 mL 06-26 14:15: 00 06-26 14:12 :00 No 1000mL at 42 mL/hr, 1,000 mL, IV Infusion, ONCE, 1 dose, Thu06/26/21 at 0915, Routine, DSU Pre-op [facility] lisinopriL- hydrochloro thiazide 20-12.5 mg per tablet 2021-0 8-06 00:00: 00 Yes 1{tbl} Take 1 tablet by mouth daily. [facility] lisinopriL- hydrochloro thiazide 20-12.5 mg per tablet 0 8- 00:00: 00 Yes 1{tbl} Take 1 tablet by mouth daily. [facility] lisinopriL- hydrochloro thiazide 20-12.5 mg per tablet 0 8 00:00: 00 Yes 1{tbl} Take 1 tablet by mouth daily. [facility] lisinopriL- hydrochloro thiazide 20-12.5 mg per tablet 0 8 00:00: 00 Yes 1{tbl} Take 1 tablet by mouth daily. [facility] lisinopriL- hydrochloro thiazide 20-12.5 mg per tablet 0 8 00:00: 00 Yes 1{tbl} Take 1 tablet by mouth daily. [facility] lisinopriL- hydrochloro thiazide 20-12.5 mg per tablet 0 806 00:00: 00 Yes 1{tbl} Take 1 tablet by mouth daily. [facility] lisinopriL- hydrochloro thiazide 20-12.5 mg per tablet 0 8 00:00: 00 Yes 1{tbl} Take 1 tablet by mouth daily. [facility] lisinopriL- hydrochloro thiazide 20-12.5 mg per tablet 0 8- 00:00: 00 Yes 1{tbl} Take 1 tablet by mouth daily. [facility] lisinopriL- hydrochloro thiazide 20-12.5 mg per tablet 0 8-06 00:00: 00 Yes 1{tbl} Take 1 tablet by mouth daily. [facility] lisinopriL- hydrochloro thiazide 20-12.5 mg per tablet 0 8-06 00:00: 00 Yes 1{tbl} Take 1 tablet by mouth daily. [facility] lisinopriL- hydrochloro thiazide 20-12.5 mg per tablet 0 05-31 00:00: 00 Yes 1{tbl} Take 1 tablet by mouth daily. [facility] lisinopriL- hydrochloro thiazide 20-12.5 mg per tablet 05-31 00:00: 00 Yes 1{tbl} Take 1 tablet by mouth daily. [facility] Vital Signs Vital Name Observation Time Observation Value Comments Kayce kim Systolic blood pressure 2021-08-21 19:30:00 117 mm[Hg] [facility] Diastolic blood pressure 2021-08-21 19:30:00 62 mm[Hg] [facility] Heart rate 2021-08-21 19:25:00 78 /min [facility] Respiratory rate 2021-08-21 19:25:00 16 /min [facility] Oxygen saturation in Arterial blood by Pulse oximetry 2021-08-21 19:25:00 96 /min [facility] Body temperature 2021-08-21 19:12:00 36.89 Tangela [facility] Body height 2021-08-16 16:24:00 165.1 cm [facility] Body weight 2021-08-16 16:24:00 97.07 kg [facility] BMI 2021-08-16 16:24:00 35.61 kg/m2 [facility] Systolic blood pressure 2021-08-21 16:18:00 125 mm[Hg] [facility] Diastolic blood pressure 2021-08-21 16:18:00 64 mm[Hg] [facility] Heart rate 2021-08-21 16:18:00 78 /min [facility] Body temperature 2021-08-21 16:18:00 36.72 Tangela [facility] Respiratory rate 2021-08-21 16:18:00 16 /min [facility] Oxygen saturation in Arterial blood by Pulse oximetry 2021-08-21 16:18:00 100 /min [facility] Body height 2021-08-16 16:24:00 165.1 cm [facility] Body weight 2021-08-16 16:24:00 97.07 kg [facility] BMI 2021-08-16 16:24:00 35.61 kg/m2 [facility] Systolic blood pressure 2021-06-26 16:55:00 104 mm[Hg] [facility] Diastolic blood pressure 2021-06-26 16:55:00 57 mm[Hg] [facility] Heart rate 2021-06-26 16:55:00 74 /min [facility] Respiratory rate 2021-06-26 16:55:00 18 /min [facility] Oxygen saturation in Arterial blood by Pulse oximetry 2021-06-26 16:55:00 97 /min [facility] Body temperature 2021-06-26 16:38:00 36.5 Tangela [facility] Body height 2021-06-26 14:46:00 167.6 cm [facility] Body weight 2021-06-26 14:46:00 97.1 kg [facility] BMI 2021-06-26 14:46:00 34.55 kg/m2 [facility] Body height 2021-06-26 14:46:00 167.6 cm [facility] Body weight 2021-06-26 14:46:00 97.1 kg [facility] BMI 2021-06-26 14:46:00 34.55 kg/m2 [facility] Systolic blood pressure 2021-06-26 14:08:00 128 mm[Hg] [facility] Diastolic blood pressure 2021-06-26 14:08:00 65 mm[Hg] [facility] Heart rate 2021-06-26 14:08:00 85 /min [facility] Body temperature 2021-06-26 14:08:00 36.06 Tangela [facility] Respiratory rate 2021-06-26 14:08:00 18 /min [facility] Oxygen saturation in Arterial blood by Pulse oximetry 2021-06-26 14:08:00 98 /min [facility] Procedures Procedure Date / Time Performed Performing Clinician Source PHACOEMULSIFICATION OF CATARACT WITH INTRAOCULAR LENS IMPLANT 2021-08-21 18:37:00 Huy Grimaldo [facility] 2021-08-21 05:01:00 Doctor Unassigned, [place] [facility] PHACOEMULSIFICATION OF CATARACT WITH INTRAOCULAR LENS IMPLANT 2021-06-26 16:00:00 Huy Grimaldo [facility] 2021-06-26 05:01:00 Doctor Unassigned, [place] [facility] ASSIGNMENT OF BENEFITS 2021-06-17 22:00:50 Doctor Unassigned, [place] [facility] Encounters Start Date/Time End Date/Time Encounter Type Admission Type Attending [facility] Facility Care Department Encounter ID Source 2021-08-26 17:31:55 Outpatient R HUY GRIMALDO [facility] OPH [id number] [facility] 2023-08-22 00:00:00 2023-08-22 00:00:00 Outpatient GC_GCBZW_Ka diyala_S [facility] [id number] [facility] 2021-08-21 11:05:00 2021-08-21 14:31:00 Hospital Encounter Huy Grimaldo [facility] [id number] [facility] 2021-08-21 11:05:00 2021-08-21 14:31:00 Outpatient R HUY GRIMALDO [facility] OPH [id number] [facility] 2021-08-21 13:19:00 2021-08-21 13:58:00 Surgery Huy Grimaldo [facility] [id number] [id number] [facility] 2021-08-21 00:00:00 2021-08-21 00:00:00 Orders Only Doctor Unassigned, [place] [facility] [id number] [id number] [id number] [facility] 2021-08-19 11:53:59 2021-08-19 12:08:59 Laboratory Only Only, Adc Test Huy Grimaldo [facility] [id number] [id number] [id number] [id number] [facility] 2021-08-19 11:45:00 2021-08-19 11:45:00 Outpatient R HUY GRIMALDO [facility] [id number] [facility] 2021-07-30 09:00:00 2021-07-30 09:00:00 Outpatient R HUY GRIMALDO [facility] [id number] [facility] 2021-06-26 09:00:00 2021-06-26 12:05:00 Hospital Encounter Huy Grimaldo [facility] [id number] [id number] [id number] [facility] 2021-06-26 10:49:00 2021-06-26 11:28:00 Surgery Huy Grimaldo [facility] [id number] [id number] [id number] [facility] 2021-06-26 00:00:00 2021-06-26 00:00:00 Orders Only Doctor Unassigned, [place] [facility] [id number] 350.1.13.10 [id number] [id number] [facility] 2021-06-24 14:53:58 2021-06-24 15:08:58 Laboratory Only Only, Adc Test Huy Grimaldo [facility] [id number] [id number] [id number] [id number] [facility] 2021-06-24 11:15:00 2021-06-24 11:15:00 Outpatient R HUY GRIMALDO [facility] [id number] [facility] 2021-06-17 17:11:11 2021-06-17 17:26:11 Airveyor Operator Visit Pob, Adc Lab Huy Jaffe [facility] Erik Mclaughlin [facility] [id number] [id number] [id number] [id number] [facility] 2021-06-17 16:15:00 2021-06-17 16:15:00 Outpatient HUY CARLSON [facility] [id number] [facility] 2021-06-17 00:00:00 2021-06-17 00:00:00 Orders Only Doctor Unassigned, [place] [facility] [id number] [id number] [id number] [id number] [facility] 2018-11-17 05:44:00 2018-11-17 05:44:00 Outpatient G_Pappas [facility] [id number] [facility]
--- NOTE | 2023-12-10 14:35 | RAD REPORT ---
EXAM DESCRIPTION: CT - Abdomen Pelvis Wo Contrast - 12/10/2023 2:12 pm CLINICAL HISTORY: Abdominal pain. ABD PAIN COMPARISON: Abdomen Pelvis W Contrast dated 03/15/2019 TECHNIQUE: CT imaging of the abdomen and pelvis was performed without contrast. Solid organ, bowel a nd vascular assessment is limited due to lack of IV and oral contrast. All CT scans are performed using dose optimization technique as appropriate and may include automated exposure control or mA/KV adjustment according to patient size. FINDINGS: The lower lung araujo are clear.Cholecystectomy clips. The liver, spleen, pancreas, adrenal glands are within normal limits for a limited non-contrast exami nation.4 cm cyst is seen projecting inferior pole right kidney. Multiple left-sided parapelvic cysts. Punctate stone midpole left kidney laterally. No bowel obstruction, free air, free fluid or abscess. Moderate stool is present throughout the colon . The appendix is normal. Mild anterolisthesis of L3 on 4, mild to moderate anterolisthesis of L4 on 5. Prominent facet hypertr ophy is present. IMPRESSION: Tiny punctate calculus left kidney without hydronephrosis. Lower lumbar degenerative changes with anterolisthesis as described. A limited non-contrast examination was performed as detailed.
[2023-12-10 15:00] LABS: Specific Gravity 1.016 (1.005-1.030); Urine Bacteria <20 /HPF (<20); Urine Bilirubin NEGATIVE (Negative); Urine Blood Negative (Negative); Urine Clarity Clear (Clear); Urine Color Light-Yellow (Yellow); Urine Glucose NEGATIVE (Negative); Urine Mucus Slight /HPF (None Seen); Urine Protein NEGATIVE (Negative); Urine RBC <5 /HPF (None Seen); Urine Urobilinogen Normal (Normal); Urine pH 5.5 (5.0-7.0)
[2023-12-10 15:12] LABS: Absolute Lymphocytes (CBC) 2.6 K/uL (0.7-4.9); Hematocrit 44.2 % (36.0-45.0); Lymphocytes % 40.7 % (15.3-44.8); MCV 97.1 fL (80-100); MPV 7.5 fL (7.6-11.3); Platelets 192 thou/uL (152-406); RBC Red Blood Cell Count 4.55 M/uL (3.86-4.86)
[2023-12-10 15:31] LABS: Albumin 4.1 g/dL (3.4-5.0); Bilirubin Total 0.8 mg/dL (0.2-1.0); Potassium 4.2 mEq/L (3.5-5.1); Protein, Total 7.3 g/dL (6.4-8.2)
--- NOTE | 2023-12-10 16:25 | ER ---
Nurse's Notes [facility] Name: Natasha Kim Age: 73 yrs Sex: Female : 1950 Arrival Date: 12/10/2023 Time: 13:15 Bed 11 Private MD: Hasmukh Gonsalez E Diagnosis: Low back pain;Constipation, unspecified Presentation: 12/10 13:55 Chief complaint: Patient states: R flank pain for 3-4 days with some nausea and ll1 constipation. Has history of kidney stones, feels similar. Coronavirus screen: Client denies travel out of the [place] in the last 14 days. At this time, the client does not indicate any symptoms associated with coronavirus-19. Ebola Screen: Patient denies travel to an Ebola-affected area in the 21 days before illness onset. Initial Sepsis Screen: Does the patient meet any 2 criteria? No. Patient's initial sepsis screen is negative. Does the patient have a suspected source of infection? Yes: Other: "kidney stone" pain. Risk Assessment: Do you want to hurt yourself or someone else? Patient reports no desire to harm self or others. Onset of symptoms was December 07, 2023. 13:55 Method Of Arrival: Ambulatory ll1 13:55 Acuity: KEN 3 ll1 Triage Assessment: 13:57 General: Appears uncomfortable, Behavior is calm, cooperative, appropriate for age. ll1 Pain: Complains of pain in R flank. GI: Reports constipation, nausea. : Reports pain in right flank(s). Historical: - Allergies: 13:21 No Known Allergies; ll1 - PMHx: 13:21 Hypertension; Kidney stones; TIA; ll1 - PSHx: 13:21 Cholecystectomy; ll1 - Immunization history:: Adult Immunizations up to date. - Social history:: Smoking status: Patient denies any tobacco usage or history of. Screenin:01 [facility] ED Fall Risk Assessment (Adult) Score/Fall Risk Level 0 - 2 = Low Risk. Abuse as6 screen: Denies threats or abuse. Denies injuries from another. Nutritional screening: No deficits noted. Tuberculosis screening: No symptoms or risk factors identified. Assessment: 16:01 Reassessment: Patient appears in no apparent distress at this time. Patient and/or as6 family updated on plan of care and expected duration. Pain level reassessed. Patient is alert, oriented x 3, equal unlabored respirations, skin warm/dry/pink. Vital Signs: 13:55 BP 129 / 64; Pulse 80; Resp 17; Temp 97.6; Pulse Ox 98% ; Pain 7/10; ll1 16:01 BP 106 / 55; Pulse 71; Resp 18 S; Pulse Ox 97% on R/A; as6 16:40 BP 103 / 66; Pulse 70; Resp 18 S; Pulse Ox 97% on R/A; as6 13:55 Pain Scale: Adult ll1 ED Course: 13:17 Patient arrived in ED. mr 13:18 Hasmukh Gonsalez MD is Private Physician. mr 13:18 Cristian Carmichael MD is Attending Physician. ec2 13:21 Arm band placed on. ll1 13:57 Triage completed. ll1 14:14 CT Abd/Pelvis - Without Contrast In Process Unspecified. EDMS 14:40 Urinalysis w/ reflexes Sent. jg11 14:56 Initial lab(s) drawn, by me, sent to lab. Inserted saline lock: 22 gauge in left wrist, jg11 using aseptic technique. Blood collected. 16:00 Troy Dave, RN is Primary Nurse. as6 16:01 Bed in low position. Call light in reach. Side rails up X 1. as6 16:40 Provided Education on: follow up, rx teaching . as6 16:40 No provider procedures requiring assistance completed. IV discontinued, intact, as6 bleeding controlled, No redness/swelling at site. Pressure dressing applied. Administered Medications: 16:00 Drug: NS 0.9% IV 1000 ml IV at 1 bolus Per protocol; 1000 mL bolus Route: IV; Rate: 1 as6 bolus; Site: left forearm; 16:41 Follow up: Response: No adverse reaction; IV Status: Completed infusion; IV Intake: as6 1000ml 16:01 Drug: Ondansetron IVP 4 mg IVP once; over 2 minutes Route: IVP; Site: left forearm; as6 16:41 Follow up: Response: No adverse reaction as6 16:01 Drug: morphine IVP or IV 4 mg IVP once over 4 mins Route: IVP; Infused Over: 4 mins; as6 Site: left forearm; 16:41 Follow up: Response: No adverse reaction as6 Medication: 16:02 VIS not applicable for this client. as6 Intake: 16:41 IV: 1000ml; Total: 1000ml. as6 Outcome: 16:25 Discharge ordered by . ec2 16:40 Discharged to home ambulatory, as6 16:40 Condition: stable 16:40 Discharge instructions given to patient, Instructed on discharge instructions, follow up and referral plans. medication usage, Demonstrated understanding of instructions, follow-up care, medications, Prescriptions given X 2, 16:41 Patient left the ED. as6 Signatures: Dispatcher [employer] EDTN Delores Billy, Reg Reg Florencia Stout, RN RN ll1 Troy Dave, RACHEL RN as6 Cristian Carmichael MD MD ec2 Amos Chapa [email or web address]
--- NOTE | 2023-12-10 16:26 | EDPHYS ---
Physician Documentation [facility] Name: Natasha Kim Age: 73 yrs Sex: Female : 1950 Arrival Date: 12/10/2023 Time: 13:15 Bed 11 Private MD: Hasmukh Gonsalez E ED Physician Cristian Carmichael HPI: 12/10 13:59 This 73 yrs old Female presents to ER via Ambulatory with complaints of ec2 Possible Kidney Stone. 13:59 Patient arrives today for evaluation of right flank pain. Has been having pain ongoing ec2 for approximately 3 days. Some associated nausea without vomiting, no issues with p.o. intake, no diarrhea symptoms. No fevers or chills, history of kidney stones. Previous abdominal surgeries include cholecystectomy.. Historical: - Allergies: 13:21 No Known Allergies; ll1 - PMHx: 13:21 Hypertension; Kidney stones; TIA; ll1 - PSHx: 13:21 Cholecystectomy; ll1 - Immunization history:: Adult Immunizations up to date. - Social history:: Smoking status: Patient denies any tobacco usage or history of. ROS: 13:59 Constitutional: as per hpi ec2 Exam: 13:59 Constitutional: GEN: NAD Head: atraumatic Eyes: EOMI Ears: External ears are ec2 normal. CV: regular rate LUNGS: no respiratory distress ABD: non-distended, soft, nontender, not guarding, not rigid, minimal right CVA TTP SKIN: no evidence of rashes MSK: no evidence of trauma NEURO: moves all extremities equally Vital Signs: 13:55 BP 129 / 64; Pulse 80; Resp 17; Temp 97.6; Pulse Ox 98% ; Pain 7/10; ll1 16:01 BP 106 / 55; Pulse 71; Resp 18 S; Pulse Ox 97% on R/A; as6 16:40 BP 103 / 66; Pulse 70; Resp 18 S; Pulse Ox 97% on R/A; as6 13:55 Pain Scale: Adult ll1 MDM: 13:53 Patient medically screened. ec2 13:59 Data reviewed: vital signs. ED course: Patient arrives today for evaluation of right ec2 flank pain. Examination remarkable for well-appearing nontoxic dividual is otherwise in no acute distress with a reassuring examination. Will obtain CT imaging, lab work and treat the patient's symptoms. Currently considering process such as obstruction, ureteral stone, pancreatitis.. 14:44 ED course: CT imaging shows nonobstructing kidney stone. Examined patient she has more ec2 TTP with light palpation of the right lateral low flank, below the area of the kidney, suspect is more musculoskeletal in nature.. 15:41 ED course: CBC reassuring, metabolic profile with appropriate electrolytes, appropriate ec2 renal function. Urine is noninfectious appearing. Lipase within normal ranges. Ultimately suspect MSK pain causing patient's symptoms. Will discharge home. Precautions given. . 02 13:59 Order name: CBC with Diff; Complete Time: 15:41 ec2 12/10 13:59 Order name: CMP; Complete Time: 15:41 ec2 12/10 13:59 Order name: Lipase; Complete Time: 15:41 ec2 12/10 13:59 Order name: Urinalysis w/ reflexes; Complete Time: 15:41 ec2 12/10 13:59 Order name: CT Abd/Pelvis - Without Contrast; Complete Time: 14:44 ec2 12/10 13:59 Order name: IV Saline Lock; Complete Time: 15:39 ec2 12/10 13:59 Order name: Labs collected and sent; Complete Time: 15:39 ec2 Administered Medications: 16:00 Drug: NS 0.9% IV 1000 ml IV at 1 bolus Per protocol; 1000 mL bolus Route: IV; Rate: 1 as6 bolus; Site: left forearm; 16:41 Follow up: Response: No adverse reaction; IV Status: Completed infusion; IV Intake: as6 1000ml 16:01 Drug: Ondansetron IVP 4 mg IVP once; over 2 minutes Route: IVP; Site: left forearm; as6 16:41 Follow up: Response: No adverse reaction as6 16:01 Drug: morphine IVP or IV 4 mg IVP once over 4 mins Route: IVP; Infused Over: 4 mins; as6 Site: left forearm; 16:41 Follow up: Response: No adverse reaction as6 Disposition Summary: 12/10/23 16:25 Discharge Ordered Notes: Location: Home ec2 Condition: Stable ec2 Diagnosis - Low back pain ec2 - Constipation, unspecified ec2 Followup: ec2 - With: Private Physician - When: - Reason: Recheck today's complaints Discharge Instructions: - Discharge Summary Sheet ec2 - Acute Back Pain, Adult ec2 Forms: - Medication Reconciliation Form ec2 - Thank You Letter ec2 - Antibiotic Education ec2 - Prescription Opioid Use ec2 - Patient Portal Instructions ec2 - Leadership Thank You Letter ec2 Prescriptions: - Lactulose 10 gram/15 mL Oral Solution - take 30 milliliters ORAL route once daily; 300 milliliter; Refills: 0, Product ec2 Selection Permitted - methocarbamol 500 mg Oral tablet - take 2 tablets ORAL route 4 times per day; 30 tablet; Refills: 0, Product ec2 Selection Permitted Signatures: Dispatcher [employer] Florencia Lambert RN RN ll1 Troy Dave RN RN as6 Cristian Carmichael MD MD ec2
[2023-12-10 16:54] VITALS: BP 103/66; TEMP 97.6; O2SAT 97
== END ==
LOC: ER 13:15
DX: K59.00 Constipation, unspecified (principal); Z87.442 Personal history of urinary calculi; I10 Essential (primary) hypertension
CPT/HCPCS: 96361; 85025; 81001; 36415; 83690; 80053; 74176; 96375; 96374; 99284; J2405; J7030